=== PATIENT | male | born 1965 | race Caucasian/White ===

== ENCOUNTER 2018-10-29 18:42 | Inpatient (IN) | payer OTHER ==
[2018-10-29] MEDS ORDERED: NALOXONE 0.4 MG/ML 1 ML VIAL IV PRN (18:58)
[2018-10-29] MEDS ORDERED: LIDOCAINE 1% INJ 10MG/ML (20 ML MDV) ONE (18:58)
[2018-10-29] MEDS ORDERED: fentaNYL (PF) 50 MCG/ML 2 ML AMP ONE (18:59)
--- NOTE | 2018-10-29 19:02 | ED ---
General Adult HPI - General Stated complaint: Chest pain Time Seen by Provider: 10/29/18 18:57 Source: patient, EMS, RN notes reviewed, old records reviewed - History of Present Illness Initial comments: 53-year-old male presenting for evaluation of chest pain. Patient was sent from [facility] with anterior ST segment elevation [place]. Patient developed dyspnea and chest pain. Today. He is diaphoretic had nausea. He has a history of CAD, history of diabetes. Previous stenting. Patient was transferred after being given aspirin, statin, and heparin. He states his pain is significantly improved at the time my evaluation. - Related Data Home Medications Medication Instructions Recorded Confirmed Clopidogrel Bisulfate [Clopidogrel] 75 mg PO DAILY 10/11/13 01/21/16 Aspirin 325 mg PO DAILY 11/23/13 01/21/16 Divalproex Sodium 500 mg PO BID 01/21/16 01/21/16 Gabapentin [Neurontin] 100 mg PO TID 01/21/16 01/21/16 Glimepiride [Amaryl] 1 mg PO BID 01/21/16 01/21/16 PARoxetine HCL [Paxil] 40 mg PO DAILY 01/21/16 01/21/16 Sertraline [Zoloft] 50 mg PO DAILY 01/21/16 01/21/16 metFORMIN HCL 1,000 mg PO BID 01/21/16 01/21/16 Previous Rx's Medication Instructions Recorded Lisinopril [Zestril] 2.5 mg PO DAILY #1 tab 10/10/13 Metoprolol Tartrate [Lopressor] 25 mg PO BID #1 tab 10/10/13 lamoTRIgine [LaMICtal] 25 mg PO BID #60 tab 10/13/13 traMADol HCL [Ultram] 50 mg PO Q6HR PRN #20 tab 08/12/14 Ondansetron Odt [Zofran ODT] 4 mg PO Q8HR PRN #10 tab 07/20/15 Dicyclomine [Bentyl] 20 mg PO Q6H PRN #20 tablet 07/21/15 Ranitidine HCl [Zantac] 150 mg PO BID #20 tab 07/21/15 Budesonide-Formot 160-4.5 Mcg 2 puff INHALATION RT-BID #1 inh 01/24/16 [Symbicort 160-4.5 Mcg Inhaler] Ipratropium/Albuterol Sulfate 1 puff INHALATION TID #1 inhaler 01/24/16 [Combivent Respimat Inhaler] Levofloxacin [Levaquin] 750 mg PO DAILY@1800 #5 tab 01/24/16 Nicotine 14Mg/24Hr Patch [Habitrol] 1 patch TRANSDERM DAILY #30 patch 01/24/16 Allergies Allergy/AdvReac Type Severity Reaction Status Date / Time No Known Allergies Allergy Verified 01/21/16 18:49 Review of Systems ROS Statement: Those systems with pertinent positive or pertinent negative responses have been documented in the HPI. ROS Other: All systems not noted in ROS Statement are negative. Past Medical History Past Medical History: Chest Pain / Angina, Diabetes Mellitus, Hypertension, Myocardial Infarction ([place]) Additional Past Medical History / Comment(s): Coronary artery disease with previous insertion of coronary stents, obesity, hypertension, hyperlipidemia, diabetes mellitus, DEPRESSION, ascending aortic aneurysm measuring 4.3 cm in size Last Myocardial Infarction Date:: 08/05/2013 History of Any Multi-Drug Resistant Organisms: None Reported Past Surgical History: Cholecystectomy, Heart Catheterization With Stent, Tonsillectomy Past Anesthesia/Blood Transfusion Reactions: No Reported Reaction Date of Last Stent Placement:: 08/05/2013 stent x 2 to RCA Past Psychological History: Depression Smoking Status: Current every day smoker Past Alcohol Use History: None Reported Additional Past Alcohol Use History / Comment(s): Pt. stated that he stopped using alcohol after being arrested for a DWI. Past Drug Use History: None Reported Additional Drug Use History / Comment(s): states he does not use any drugs drug screen was positive for methamphetamines - Past Family History Father Family Medical History: Diabetes Mellitus Additional Family Medical History / Comment(s): HAD HEART ATTACK Mother Family Medical History: Diabetes Mellitus Additional Family Medical History / Comment(s): HAD HEART ATTACK General Exam General appearance: alert, in no apparent distress Head exam: Present: atraumatic, normocephalic Eye exam: Present: normal appearance, PERRL ENT exam: Present: normal exam Neck exam: Present: normal inspection. Absent: tenderness, meningismus Respiratory exam: Present: normal lung sounds bilaterally. Absent: respiratory distress, wheezes Cardiovascular Exam: Present: regular rate, normal rhythm GI/Abdominal exam: Present: soft. Absent: distended, tenderness, guarding Extremities exam: Present: normal capillary refill. Absent: pedal edema Neurological exam: Present: alert, oriented X3 Psychiatric exam: Present: normal affect, normal mood Skin exam: Present: warm, diaphoretic EKG Findings - EKG Comments: EKG Findings:: EKG: Sinus tachycardia, rate of 107, left atrial enlargement, low voltage, rate of 70, LA interval 124, QRS duration 94, QTC 531, ST segment elevation in V2 and V3 with T-wave inversion. Medical Decision Making - Medical Decision Making 53-year-old male history of CAD, diabetes presenting with acute IL. Patient transferred from the [facility], given aspirin, statin, heparin prior to arrival. He is productive emergency department awaiting Supervisor Sample Preparation. He is evaluated by the liquid fertilizer servicer in the emergency department, Dr. Acuna, taken urgently to the Supervisor Sample Preparation. Disposition Clinical Impression: STEMI (ST elevation myocardial infarction) Disposition[facility] Condition: Serious Is patient prescribed a controlled substance at d/c from ED?: No Referrals: Roosevelt Moulton MD [Primary Care Provider] - 1-2 days Decision to Admit Reason: Admit from EC Decision Date: 10/29/18 Decision Time: 19:01
[2018-10-29] MEDS ORDERED: IV FLUID CONTINUATION 1,000 ML IV ONE (19:10)
[2018-10-29] MEDS ORDERED: fentaNYL (PF) 50 MCG/ML 2 ML AMP IVP ONE (19:12)
[2018-10-29] MEDS ORDERED: LIDOCAINE 1% INJ 10MG/ML (20 ML MDV) SQ ONE (19:12)
[2018-10-29] MEDS ORDERED: MIDAZOLAM (PF) 2 MG/2 ML VIAL IVP ONE (19:14)
[2018-10-29] MEDS ORDERED: BIVALIRUDIN BOLUS 250 MG/50 ML IV ONE (19:22)
[2018-10-29] MEDS ORDERED: BIVALIRUDIN 250 MG in SODIUM CHLORIDE 0.9% 50 ML IV ONE (19:23)
[2018-10-29] MEDS ORDERED: NITROGLYCERIN 1000MCG/10ML SYRINGE INTRACORON ONE (19:32)
[2018-10-29] MEDS ORDERED: IOPAMIDOL-370 100ML BTL INJ ONE ×2 (19:37→19:51)
[2018-10-29] MEDS ORDERED: PRASUGREL 10 MG TAB ONE (19:43)
[2018-10-29] MEDS ORDERED: METOPROLOL TARTRATE 5 MG/5 ML VIAL IVP ONE ×2 (19:44→19:50)
[2018-10-29] MEDS ORDERED: PRASUGREL 10 MG TAB PO ONE (19:50)
[2018-10-29] MEDS ORDERED: RX INFO: IV CONTRAST WAS GIVEN 1 EACH MISC MISCELLANE PRN (19:51)
[2018-10-29] MEDS ORDERED: ATROPINE SULFATE 0.1 MG/ML 10ML SYRINGE IV PRN (19:51)
[2018-10-29] MEDS ORDERED: MAG HYDROX/AL HYDROX/SIMETH 30 ML CUP PO PRN (19:51)
[2018-10-29] MEDS ORDERED: NITROGLYCERIN SL TABS 0.4 MG TAB SUBLINGUAL PRN (19:51)
[2018-10-29] MEDS ORDERED: SODIUM CHLORIDE 0.9% 1,000 ML IV SCH (20:00)
[2018-10-29 21:00] LABS: Glucose,Whole Blood 212 mg/dL (75-99)
--- NOTE | 2018-10-29 21:08 | PTCA ---
PERCUTANEOUSTRANS CORORONARY ANGIOGRAPHY DATE OF SERVICE: October 29, 2018 PERFORMING PHYSICIAN: Bala Smith MD, dry chain operator. PROCEDURE PERFORMED: 1. Aspiration thrombectomy from the left anterior descending artery. 2. Successful stenting of the proximal left anterior descending artery using 2.5 x 33 mm Xience drug-eluting stent which was post dilated using 3 mm noncompliant balloon with an excellent angiographic results and reduction of stenosis from 100% to 0%. 3. Left heart catheterization. 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 He underwent an emergent heart catheterization by Dr. Acuna and was found to have intermediate disease involving the mid right coronary artery and occluded LAD in the proximal portion. An emergent PCI of the LAD was advised. APPROACH: Right common femoral artery. COMPLICATION: None. LEVEL OF SEDATION: Moderate with sedation length of 26 minutes. Lgax-sm-iarl to balloon was 2 hours. PROCEDURE DESCRIPTION: Description please refer to diagnostic heart catheterization was performed by Dr. Acuna earlier today. Anticoagulation was initiated using Angiomax. Subsequently I did the left main using JL5 guide. I did cross the acute total occlusion in the proximal LAD using a run-through wire. After that, I did aspiration thrombectomy from the LAD before I did balloon angioplasty using 2.5 x 12 mm balloon and subsequently deploying 2.5 x 28 x 33 mm Xience ALINA where the stent was positioned under fluoroscopy guidance and deployed under 18 atmospheres for 20 seconds. I post-dilated the stent using a 3.0 mm NC balloon. The final angiogram showed excellent results and the procedure was completed without any complication. Left heart catheterization was performed using a 6-Bruneian pigtail catheter. The procedure was completed without any complication. POSTPROCEDURE MANAGEMENT: 1. Dual anti-platelet therapy. 2. Risk factors modifications. 3. Follow up with the patient. MMODL / IJN: [id number] /
--- NOTE | 2018-10-29 21:08 | CONS ---
CONSULTATION This is a 53-year-old gentleman with history of coronary artery disease, status post prior angioplasty, who presented to [facility] with acute anterior wall myocardial infarction and is transferred over to [facility] for emergent cath and angioplasty. The patient presented there with episodes of precordial chest pressure that is being going on for the last several days, particularly worse today. He has history of diabetes. He has been in snf up until recently and has not been seeing a high school guidance counselor regularly. PAST MEDICAL HISTORY: Significant for coronary artery disease and diabetes. MEDICATIONS: As charted. ALLERGIES: Allergies are as charted. FAMILY HISTORY: Negative for premature coronary artery disease. SOCIAL HISTORY: Significant for smoking. There is no history of EtOH abuse or drug abuse. REVIEW OF SYSTEMS: HEENT is unremarkable. CARDIAC as described above. RESPIRATORY as described above. GI negative. GENITOURINARY negative. ALLERGY/IMMUNOLOGY: Negative. SKIN negative. MUSCULOSKELETAL significant for arthritis. PSYCHOSOCIAL negative. ENDOCRINE: Negative. DERM: Negative. CONSTITUTIONAL: Negative. ONCOLOGICAL: Negative. Rest of the system review is not relevant. EXAM: The patient is comfortable at rest. Vital signs are stable. There is no jugular venous distention. Carotid upstroke is normal. There is no bruit. Chest exam reveals good air entry bilaterally. Heart exam reveals first and second heart sounds. No gallop. No murmur. No rub. Abdomen is soft, nontender. Exam of extremities did not reveal any edema. Peripheral pulses are felt. CLOTHING TRADES WORKERS exam did not reveal focal neurological deficits. EKG shows acute anterior wall myocardial infarction with ST-segment elevation in V2, V3. ASSESSMENT: Acute anterior wall myocardial infarction. PLAN: Patient will undergo emergent cardiac catheterization. MMODL / IJN: [id number] /
--- NOTE | 2018-10-29 21:26 | CC ---
CARDIAC CATHETERIZATION REPORT INDICATION: Acute anterior wall myocardial infarction. PROCEDURE NOTE: After obtaining informed consent, left heart catheterization and coronary angiogram were performed via the right femoral artery using standard Tony catheters. Patient tolerated the procedure well without any obvious immediate complications. The left coronary system was engaged using a size 5 Tony catheters. FINDINGS: HEMODYNAMICS: Aortic pressure is 120/60 mm. LEFT VENTRICULOGRAM: Left ventriculogram is not performed. ANGIOGRAPHIC DATA: LEFT MAIN CORONARY ARTERY: Left main coronary artery appears calcified but is free of significant stenosis. Divides into left anterior descending coronary artery and circumflex coronary artery. CIRCUMFLEX CORONARY ARTERY: Circumflex coronary artery is a nondominant vessel that has non critical lesions. LEFT ANTERIOR DESCENDING CORONARY ARTERY: The LAD appears totally occluded in its proximal part. RIGHT CORONARY ARTERY: Right coronary artery was previously stented in the proximal and midportion. The stent appears patent. In the mid RCA, there is a 30-40 percent stenosis. CONCLUSIONS: 1. Complete occlusion of the left anterior descending coronary artery. 2. Patent stent within the right coronary artery. PLAN: Patient will undergo angioplasty of the LAD. MMODL / IJN: [id number] /
--- NOTE | 2018-10-29 21:29 | LTR ---
DATE OF SERVICE: October 29, 2018. Dear Dr. Moulton: Mr. Jose Enrique Randhawa presented to the emergency room with chest discomfort and was diagnosed with acute anterior ST-elevation myocardial infarction. He underwent an emergent heart catheterization by Dr. Acuna and I did perform successful stenting of the LAD disease. Thank you for allowing us to participate in his care and please do not hesitate to call if you have any question or concerns. Sincerely, MMODL / IJN: [id number] /
[2018-10-29] MEDS: ATORVASTATIN 80 MG TAB PO SCH (21:36)
[2018-10-29] MEDS: INSULIN ASPART (NovoLOG) 100 UNIT/ML VIAL SQ SCH (21:36)
[2018-10-29 21:38] LABS: Glucose,Whole Blood 230 mg/dL (75-99)
[2018-10-29] MEDS ORDERED: guaiFENesin SYRUP 100MG/5ML 200 MG/10 ML CUP PO PRN (23:15)
[2018-10-29] MEDS: METOPROLOL TARTRATE 25 MG TAB PO SCH (23:34)
[2018-10-30] MEDS ORDERED: INSULIN ASPART (NovoLOG) 100 UNIT/ML VIAL SQ ONE (01:03)
[2018-10-30 01:05] LABS: Glucose,Whole Blood 197 mg/dL (75-99)
[2018-10-30] MEDS ORDERED: FUROSEMIDE 10 MG/ML 4 ML VIAL IV STA (06:36)
[2018-10-30 06:53] LABS: Basophils % (A) 0 %; Eosinophils # (A) 0.1 k/uL (0-0.7); Eosinophils % (A) 1 %; HCT 42.9 % (39.0-53.0); HGB 13.4 gm/dL (13.0-17.5); Lymphocytes # (A) 2.7 k/uL (1.0-4.8); Lymphocytes % (A) 25 %; MCH 26.9 pg (25.0-35.0); MCHC 31.2 g/dL (31.0-37.0); MCV 86.2 fL (80.0-100.0); Mean Platelet Volume 7.3; Monocytes # (A) 0.5 k/uL (0-1.0); Monocytes % (A) 4 %; Neutrophils # (A) 7.3 k/uL (1.3-7.7); Neutrophils % (A) 68 %; Platelet Count 384 k/uL (150-450); RBC 4.97 m/uL (4.30-5.90); RDW 14.1 % (11.5-15.5); WBC 10.7 k/uL (3.8-10.6)
--- NOTE | 2018-10-30 07:07 | XR ---
EXAMINATION TYPE: XR chest 1V portable DATE OF EXAM: 10/30/2018 HISTORY: Shortness of breath. COMPARISON: January 23, 2016 TECHNIQUE: Single view of the chest is submitted. FINDINGS: Demonstrated are scattered senescent parenchymal change. There is pulmonary venous congestion with scattered curly B-lines suggestive of congestive failure. L eft basilar patchy infiltrate may reflect additional infiltrate. Hilar and mediastinal structures are within normal limits. Degenerative changes are seen of the dorsal spine. IMPRESSION: 1. Findings may reflect interstitial edema. Infiltrates of other etiology not excluded. Correlate cl inically and progress studies are recommended.
[2018-10-30 07:09] LABS: Anion Gap 10 mmol/L; Blood Urea Nitrogen 14 mg/dL (9-20); Carbon Dioxide 22 mmol/L (22-30); Chloride 108 mmol/L (98-107); Glucose 200 mg/dL (74-99); Magnesium 1.8 mg/dL (1.6-2.3); Potassium 4.4 mmol/L (3.5-5.1); Sodium 140 mmol/L (137-145)
[2018-10-30 07:19] LABS: Glucose,Whole Blood 200 mg/dL (75-99)
[2018-10-30] MEDS: INSULIN ASPART (NovoLOG) 100 UNIT/ML VIAL SQ SCH ×4 (07:24→21:38)
[2018-10-30] MEDS: IPRATROPIUM-ALBUTEROL 3 ML NEB INHALATION PRN ×2 (08:10→19:07)
[2018-10-30] MEDS: MAGNESIUM SULFATE-D5W PMX 1 GM in DEXTROSE/WATER 1 100ML.BAG IVPB SCH ×2 (08:52→10:19)
[2018-10-30] MEDS: ASPIRIN 325 MG TAB PO SCH (08:53)
[2018-10-30] MEDS: METOPROLOL TARTRATE 25 MG TAB PO SCH ×2 (08:53→19:49)
--- NOTE | 2018-10-30 09:05 | P.HPIM ---
History of Present Illness this is a pleasant 53 years old malewith past medical history of asthma, coronary artery disease status post cardiac cath with the stents, diabetes mellitus, hyperlipidemia, hypertension, ex-cigarette smoker and substance abuse, chronic diarrhea. patient was recently released from detention on 10/25/2018. he presents because of chest pain and dyspneaone-day duration after he helped his son regarding up objects for his house. Patient came to the emergency room and found to have anterior segment ST elevation [place]. Patient underwent cardiac angiogram by stemming machine operator, he found to havecomplete occlusion of the left anterior descending coronary artery with patent stent in the right coronary arteries. Patient is status post stent placement in his LAD. After the procedure patient was sent to the ICU, is lying comfortably with no chest pain , however patient is complaining of from dyspnea at rest and with minimal exertion. his vitals are stable. He has mild leukocytosis at 10.7 K, BMP is unremarkable, sugar is around 200. Magnesium 1.8.chest x-ray: Interstitial edema, he got already 1 dose of Lasix 40 mg this morning. Review of Systems CONSTITUTIONAL: No fever, no malaise, no fatigue. HEENT: No recent visual problems or hearing problems. Denied any sore throat. CARDIOVASCULAR: No orthopnea, PND, no palpitations, no syncope. PULMONARY: No shortness of breath, no cough, no hemoptysis. GASTROINTESTINAL: No diarrhea, no nausea, no vomiting, no abdominal pain. Normoactive bowel sounds. NEUROLOGICAL: No headaches, no weakness, no numbness. HEMATOLOGICAL: Denies any bleeding or petechiae. GENITOURINARY: Denies any burning micturition, frequency, or urgency. MUSCULOSKELETAL/RHEUMATOLOGICAL: Denies any joint pain, swelling, or any muscle pain. ENDOCRINE: Denies any polyuria or polydipsia. Past Medical History Past Medical History: Asthma, Coronary Artery Disease (CAD), Chest Pain / Angina, Diabetes Mellitus, Hyperlipidemia, Hypertension, Myocardial Infarction ([place]) Additional Past Medical History / Comment(s): Coronary artery disease with previous insertion of coronary stents, obesity, hypertension, hyperlipidemia, diabetes mellitus, DEPRESSION, ascending aortic aneurysm measuring 4.3 cm in size Last Myocardial Infarction Date:: 08/05/2013 History of Any Multi-Drug Resistant Organisms: None Reported Past Surgical History: Cholecystectomy, Heart Catheterization With Stent, Tonsillectomy Past Anesthesia/Blood Transfusion Reactions: No Reported Reaction Date of Last Stent Placement:: 08/05/2013 stent x 2 to RCA Past Psychological History: Depression Smoking Status: Current every day smoker Past Alcohol Use History: None Reported Additional Past Alcohol Use History / Comment(s): Pt. stated that he stopped using alcohol after being arrested for a DWI. Past Drug Use History: None Reported Additional Drug Use History / Comment(s): states he does not use any drugs drug screen was positive for methamphetamines - Past Family History Father Family Medical History: Diabetes Mellitus Additional Family Medical History / Comment(s): HAD HEART ATTACK Mother Family Medical History: Diabetes Mellitus Additional Family Medical History / Comment(s): HAD HEART ATTACK Medications and Allergies Home Medications Medication Instructions Recorded Confirmed Type Lisinopril [Zestril] 2.5 mg PO DAILY #1 tab 10/10/13 01/21/16 Rx Metoprolol Tartrate [Lopressor] 25 mg PO BID #1 tab 10/10/13 01/21/16 Rx Clopidogrel Bisulfate [Clopidogrel] 75 mg PO DAILY 10/11/13 01/21/16 History lamoTRIgine [LaMICtal] 25 mg PO BID #60 tab 10/13/13 01/21/16 Rx Aspirin 325 mg PO DAILY 11/23/13 01/21/16 History traMADol HCL [Ultram] 50 mg PO Q6HR PRN #20 tab 08/12/14 01/21/16 Rx Ondansetron Odt [Zofran ODT] 4 mg PO Q8HR PRN #10 tab 07/20/15 01/21/16 Rx Dicyclomine [Bentyl] 20 mg PO Q6H PRN #20 tablet 07/21/15 01/21/16 Rx Ranitidine HCl [Zantac] 150 mg PO BID #20 tab 07/21/15 01/21/16 Rx Divalproex Sodium 500 mg PO BID 01/21/16 01/21/16 History Gabapentin [Neurontin] 100 mg PO TID 01/21/16 01/21/16 History Glimepiride [Amaryl] 1 mg PO BID 01/21/16 01/21/16 History PARoxetine HCL [Paxil] 40 mg PO DAILY 01/21/16 01/21/16 History Sertraline [Zoloft] 50 mg PO DAILY 01/21/16 01/21/16 History metFORMIN HCL 1,000 mg PO BID 01/21/16 01/21/16 History Budesonide-Formot 160-4.5 Mcg 2 puff INHALATION RT-BID #1 inh 01/24/16 Rx [Symbicort 160-4.5 Mcg Inhaler] Ipratropium/Albuterol Sulfate 1 puff INHALATION TID #1 inhaler 01/24/16 Rx [Combivent Respimat Inhaler] Levofloxacin [Levaquin] 750 mg PO DAILY@1800 #5 tab 01/24/16 Rx Nicotine 14Mg/24Hr Patch [Habitrol] 1 patch TRANSDERM DAILY #30 patch 01/24/16 Rx Allergies Allergy/AdvReac Type Severity Reaction Status Date / Time No Known Allergies Allergy Verified 01/21/16 18:49 Physical Exam Vitals: Vital Signs Temp Pulse Resp BP Pulse Ox 10/30/18 08:25 94 10/30/18 08:12 98 10/30/18 07:00 93 27 H 107/66 98 10/30/18 06:00 98 24 102/74 98 10/30/18 05:00 89 25 H 104/76 96 10/30/18 04:00 97.8 F 96 26 H 113/77 95 10/30/18 03:00 104 H 23 104/77 95 10/30/18 02:00 86 24 106/74 93 L 10/30/18 01:00 94 22 101/70 96 10/30/18 00:00 98.1 F 97 22 106/75 95 10/29/18 23:00 99 20 116/81 95 10/29/18 22:45 101 H 21 115/80 95 10/29/18 22:30 96 22 110/80 96 10/29/18 22:15 98 22 109/64 97 10/29/18 22:00 98 25 H 103/73 96 10/29/18 21:45 102 H 22 97/72 94 L 10/29/18 21:30 97 24 101/71 94 L 10/29/18 21:15 97 14 99/76 95 10/29/18 21:00 95 16 90/69 95 10/29/18 20:45 98 22 90/72 95 10/29/18 20:30 98.0 F 94 27 H 96/76 93 L 10/29/18 19:28 98.0 F 19 10/29/18 18:58 110 H 20 118/86 97 Intake and Output 10/29/18 10/30/18 10/30/18 22:59 06:59 14:59 Intake Total 718 1765 Output Total 0 500 250 Balance 718 1265 -250 Intake: IV 718 525 Sodium Chloride 0.9% 1, 225 525 000 ml @ 75 mls/hr IV . [id number] [facility] Rx#:[id number] Oral 1240 Output: Urine 0 500 250 Other: Voiding Method Urinal Urinal # Voids 1 Weight 129.274 kg 129.3 kg GENERAL: The patient is alert and oriented x3, not in any acute distress. Well developed, well nourished. HEENT: Pupils are round and equally reacting to light. EOMI. No scleral icterus. No conjunctival pallor. Normocephalic, atraumatic. No pharyngeal erythema. No thyromegaly. CARDIOVASCULAR: S1 and S2 present. No murmurs, rubs, or gallops. PULMONARY: Chest is clear to auscultation, no wheezing or crackles. ABDOMEN: Soft, nontender, nondistended, normoactive bowel sounds. No palpable organomegaly. MUSCULOSKELETAL: No joint swelling or deformity. EXTREMITIES: No cyanosis, clubbing, or pedal edema. NEUROLOGICAL: Gross neurological examination did not reveal any focal deficits. SKIN: No rashes. Results CBC & Chem 7: 10/30/18 06:00 10/30/18 06:00 Labs: Abnormal Lab Results - Last 24 Hours (Table) 10/29/18 10/29/18 10/30/18 Range/Units 20:49 21:26 00:54 WBC (3.8-10.6) k/uL Chloride (98-107) mmol/L Glucose (74-99) mg/dL POC Glucose (mg/dL) 212 H 230 H 197 H (75-99) mg/dL 10/30/18 10/30/18 10/30/18 Range/Units 06:00 06:00 07:08 WBC 10.7 H (3.8-10.6) k/uL Chloride 108 H (98-107) mmol/L Glucose 200 H (74-99) mg/dL POC Glucose (mg/dL) 200 H (75-99) mg/dL Thrombosis Risk Factor Assmnt - Choose All That Apply Any of the Below Risk Factors Present?: Yes Each Factor Represents 1 point: Acute [place], Age 41-60 years, Medical pt on bed rest, Obesity (BMI >25) Other Risk Factors: No Other congenital or acquired thrombophilia - If yes, enter type in comment: No Thrombosis Risk Factor Assessment Total Risk Factor Score: 4 Thrombosis Risk Factor Assessment Level: Moderate Risk Assessment and Plan Assessment: anterior ST elevation myocardial infarction, status post stent placement in his LAD History of coronary artery disease with status post stent placement in his right coronary artery pulmonary congestion, rule out heart failure. type2 diabetes mellitus Essential hypertension history of Nicotine dependence Hyperlipidemia chronic diarrhea Plan: this is a pleasant 53 years old male who presents with anterior STEMI, status post angiogram of the coronaries and stent placement in his LAD. Continue with dual antiplatelet therapy, metoprolol, and Lipitor. Cartilage team are following the patient closely. Labs and medication were reviewed.. Continue same treatment. Continue with symptomatic treatment. Resume home medication. Monitor lytes and vitals. DVT and GI prophylaxis. Further recommendations of the clinical course of the patient GI Prophylaxis: Pepcid
[2018-10-30] MEDS: PRASUGREL 10 MG TAB PO SCH (10:20)
[2018-10-30 10:33] VITALS: BMI 37.5
[2018-10-30] MEDS: CITALOPRAM HYDROBROMIDE 20 MG TAB PO SCH (11:36)
[2018-10-30 12:12] LABS: Glucose,Whole Blood 229 mg/dL (75-99)
[2018-10-30] MEDS: glipiZIDE 5 MG TAB PO SCH ×2 (12:19→17:56)
--- NOTE | 2018-10-30 12:44 | PN ---
PROGRESS NOTE Mr. Randhawa is a 53-year-old gentleman who was transferred from [facility] because of the EKG suggestive of acute anterior wall myocardial infarction and patient underwent a stent to the LAD. Patient is doing fairly well. Denies any chest pain. He had some difficulty in breathing. Patient received IV Lasix and diuresed about a L of fluid. Chest x-ray does show evidence of congestive cardiac failure. Electrolytes are normal. Echo result is being awaited. The patient's creatinine is 0.77. Blood pressure is 121/88 mmHg. Heart S1 and S2 normal. Lungs reveal few basal rales. Abdomen is negative. I will continue the current medications and we will repeat the chest x-ray tomorrow. MMODL / IJN: [id number] /
[2018-10-30] MEDS ORDERED: FUROSEMIDE 10 MG/ML 2 ML VIAL IV ONE (13:23)
[2018-10-30] MEDS: ALPRAZolam 0.5 MG TAB PO PRN ×2 (13:54→21:40)
[2018-10-30 17:17] LABS: Glucose,Whole Blood 146 mg/dL (75-99)
[2018-10-30] MEDS ORDERED: metFORMIN 500 MG TAB PO SCH (17:30)
--- NOTE | 2018-10-30 17:38 | ECHOF ---
Referral Reason:stemi MEASUREMENTS -------- HEIGHT: 180.3 cm WEIGHT: 129.3 kg BP: 107/66 IVSd: 1.1 cm (0.6 - 1.1) LVIDd: 6.3 cm (3.9 - 5.3) LVPWd: 1.1 cm (0.6 - 1.1) IVSs: 1.2 cm LVIDs: 5.9 cm LVPWs: 1.4 cm LAESV Index (A-L): 27.06 ml/m Ao Diam: 3.5 cm (2.0 - 3.7) AV Cusp: 1.7 cm (1.5 - 2.6) LA Diam: 3.0 cm (2.7 - 3.8) MV EXCURSION: 12.907 mm (> 18.000) MV EF SLOPE: 35 mm/s (70 - 150) EPSS: 2.1 cm MV E Evans: 1.03 m/s MV DecT: 153 ms MV A Evans: 0.34 m/s MV E/A Ratio: 3.00 AV maxP.79 mmHg AV meanP.28 mmHg AR PHT: 339 ms RAP: 5.00 mmHg RVSP: 34.31 mmHg FINDINGS -------- Sinus rhythm. This was a technically adequate study. The left ventricle is mildly dilated. Left ventricular wall thickness is normal. There is severe global hypokinesis of LV . Overall left ventricular systolic function is severely impaired with, an EF between 20 - 25 %. Basal Segment Yadira only. The right ventricle is normal in size. Normal LA size by volume 22+/-6 ml/m2. The right atrial size is normal. Lumason used Interatrial and interventricular septum intact. Aortic valve is trileaflet and is moderately thickened. There is mild aortic regurgitation. Aorti c valve appears stenotic. Unable to get gradient based on very low EF. The mitral valve leaflets are mildly thickened. [id number] mitral regurgitation is present. Mild tricuspid regurgitation present. There is no evidence of pulmonary hypertension. The right v entricular systolic pressure, as measured by Doppler, is 34.31mmHg. The aortic root size is normal. IVC Not well visulized. There is no pericardial effusion. CONCLUSIONS -------- 1. Sinus rhythm. 2. This was a technically adequate study. 3. The left ventricle is mildly dilated. 4. Left ventricular wall thickness is normal. 5. There is severe global hypokinesis of LV . 6. Overall left ventricular systolic function is severely impaired with, an EF between 20 - 25 %. 7. Basal Segment Yadira only. 8. The right ventricle is normal in size. 9. Normal LA size by volume 22+/-6 ml/m2. 10. The right atrial size is normal. 11. Lumason used 12. Interatrial and interventricular septum intact. 13. Aortic valve is trileaflet and is moderately thickened. 14. There is mild aortic regurgitation. 15. The mitral valve leaflets are mildly thickened. 16. Pnkz-kl-gjholrho mitral regurgitation is present. 17. Mild tricuspid regurgitation present. 18. There is no evidence of pulmonary hypertension. 19. The right ventricular systolic pressure, as measured by Doppler, is 34.31mmHg. 20. The aortic root size is normal. 21. IVC Not well visulized. 22. There is no pericardial effusion. JAVA TECH LEAD: Ria Elder RDCS
[2018-10-30] MEDS: ATORVASTATIN 80 MG TAB PO SCH (19:49)
[2018-10-30 21:11] LABS: Glucose,Whole Blood 158 mg/dL (75-99)
[2018-10-31 05:33] LABS: Anion Gap 8 mmol/L; Blood Urea Nitrogen 13 mg/dL (9-20); Calcium 8.6 mg/dL (8.4-10.2); Carbon Dioxide 24 mmol/L (22-30); Chloride 105 mmol/L (98-107); Glucose 159 mg/dL (74-99); Sodium 137 mmol/L (137-145)
[2018-10-31 05:49] LABS: Magnesium 1.9 mg/dL (1.6-2.3)
[2018-10-31] MEDS: MAGNESIUM SULFATE-D5W PMX 1 GM in DEXTROSE/WATER 1 100ML.BAG IVPB SCH ×2 (05:57→07:00)
[2018-10-31 07:02] LABS: Glucose,Whole Blood 179 mg/dL (75-99)
[2018-10-31] MEDS: glipiZIDE 5 MG TAB PO SCH ×2 (07:08→17:24)
[2018-10-31] MEDS: INSULIN ASPART (NovoLOG) 100 UNIT/ML VIAL SQ SCH ×4 (07:08→20:46)
[2018-10-31] MEDS: ASPIRIN 325 MG TAB PO SCH (08:49)
[2018-10-31] MEDS: METOPROLOL TARTRATE 25 MG TAB PO SCH ×2 (08:49→20:44)
[2018-10-31] MEDS: TAMSULOSIN 0.4 MG CAP.ER.24H PO SCH (08:49)
[2018-10-31] MEDS: PRASUGREL 10 MG TAB PO SCH (08:49)
[2018-10-31] MEDS: CITALOPRAM HYDROBROMIDE 20 MG TAB PO SCH (08:59)
--- NOTE | 2018-10-31 10:11 | XR ---
EXAMINATION TYPE: XR chest 1V portable DATE OF EXAM: 10/31/2018 COMPARISON: 10/30/2018 INDICATION: Assess lungs TECHNIQUE: Single frontal view of the chest is obtained. FINDINGS: The heart size is mildly prominent. The pulmonary vasculature is normal. The lungs are clear. IMPRESSION: 1. Cardiomegaly
[2018-10-31] MEDS: FUROSEMIDE 20 MG TAB PO SCH (12:18)
[2018-10-31] MEDS: LISINOPRIL 2.5 MG TAB PO SCH ×2 (12:18→20:44)
[2018-10-31 12:23] LABS: Glucose,Whole Blood 224 mg/dL (75-99)
--- NOTE | 2018-10-31 12:36 | PN ---
PROGRESS NOTE This patient is status post stent to the LAD and anterior wall myocardial infarction. He is feeling much better as compared to yesterday. His breathing is improved. Patient's heart rate is 100 per minute, blood pressure is 103/57 mmHg. First and second heart sounds are heard. Lungs are clinically clear to auscultation and percussion. Chest x-ray shows improvement in the congestive changes. Patient's echocardiogram reveals a severely impaired left ventricular systolic function. In view of that, I discussed with the patient the benefits and risks of the life vest and we will consider life vest to prevent any sudden cardiac cath . I will a also add lisinopril 2.5 mg b.i.d. and continue Lopressor 25 mg b.i.d. MMODL / COURTNEYN: [id number] /
[2018-10-31 17:05] LABS: Glucose,Whole Blood 175 mg/dL (75-99)
[2018-10-31] MEDS ORDERED: FUROSEMIDE 10 MG/ML 2 ML VIAL IV ONE (17:15)
[2018-10-31] MEDS: IPRATROPIUM-ALBUTEROL 3 ML NEB INHALATION PRN (19:12)
[2018-10-31] MEDS: ATORVASTATIN 80 MG TAB PO SCH (20:44)
[2018-10-31 20:48] LABS: Glucose,Whole Blood 169 mg/dL (75-99)
[2018-10-31] MEDS: ALPRAZolam 0.5 MG TAB PO PRN (20:56)
[2018-10-31] MEDS: ZOLPIDEM 5 MG TAB PO PRN (23:08)
[2018-11-01] MEDS ORDERED: FUROSEMIDE 10 MG/ML 4 ML VIAL IV STA (01:19)
[2018-11-01 05:35] LABS: Basophils # (A) 0.1 k/uL (0-0.2); Basophils % (A) 1 %; Eosinophils # (A) 0.1 k/uL (0-0.7); Eosinophils % (A) 1 %; HCT 39.6 % (39.0-53.0); HGB 12.9 gm/dL (13.0-17.5); Lymphocytes # (A) 2.6 k/uL (1.0-4.8); Lymphocytes % (A) 30 %; MCH 27.6 pg (25.0-35.0); MCHC 32.6 g/dL (31.0-37.0); MCV 84.7 fL (80.0-100.0); Mean Platelet Volume 7.4; Monocytes # (A) 0.5 k/uL (0-1.0); Monocytes % (A) 6 %; Neutrophils # (A) 5.2 k/uL (1.3-7.7); Neutrophils % (A) 61 %; Platelet Count 304 k/uL (150-450); RBC 4.67 m/uL (4.30-5.90); WBC 8.6 k/uL (3.8-10.6)
[2018-11-01 05:43] LABS: Anion Gap 8 mmol/L; Blood Urea Nitrogen 14 mg/dL (9-20); Calcium 8.5 mg/dL (8.4-10.2); Carbon Dioxide 26 mmol/L (22-30); Chloride 104 mmol/L (98-107); Glucose 170 mg/dL (74-99); Potassium 3.7 mmol/L (3.5-5.1); Sodium 138 mmol/L (137-145)
--- NOTE | 2018-11-01 06:21 | P.PN ---
Subjective this is a pleasant 53 years old malewith past medical history of asthma, coronary artery disease status post cardiac cath with the stents, diabetes mellitus, hyperlipidemia, hypertension, ex-cigarette smoker and substance abuse, chronic diarrhea. patient was recently released from long-term on 10/25/2018. he presents because of chest pain and dyspneaone-day duration after he helped his son regarding up objects for his house. Patient came to the emergency room and found to have anterior segment ST elevation [place]. Patient underwent cardiac angiogram by circus trainer, he found to havecomplete occlusion of the left anterior descending coronary artery with patent stent in the right coronary arteries. Patient is status post stent placement in his LAD. After the procedure patient was sent to the ICU, is lying comfortably with no chest pain , however patient is complaining of from dyspnea at rest and with minimal exertion. his vitals are stable. He has mild leukocytosis at 10.7 K, BMP is unremarkable, sugar is around 200. Magnesium 1.8.chest x-ray: Interstitial edema, he got already 1 dose of Lasix 40 mg this morning. 10/14/2018 Patient was lying in bed comfortable with no chest pain or dyspnea. Patient is in the ICU for his heart disease. He is on aspirin and Plavix. Patient of extra dose of Lasix. Chest x-ray showing normal pulmonary vasculature. Cardiology team are reviewing the case and the recommend LifeVest for the harris ent in view of his low ejection fraction of 20-25%. Patient also has [id number]-hl-[id number] mitral regurgitation. He is currently on lisinopril and metoprolol. He is hemodynamically stable. Glucose is controlled. Objective - Vital Signs Vital signs: Vital Signs Temp 98.6 F 10/31/18 16:00 Pulse 104 H 10/31/18 19:25 Resp 25 H 10/31/18 19:00 BP 101/71 10/31/18 19:00 Pulse Ox 94 L 10/31/18 19:13 Intake & Output 10/31/18 10/31/18 11/01/18 06:59 18:59 06:59 Intake Total 200 850 0 Output Total 675 1100 Balance -475 -250 0 Weight 132.8 kg Intake: IV 0 0 0.9ns 0 0 Intake, IV Titration 200 Amount Magnesium Sulfate-D5w Pmx 200 1 gm In Dextrose/Water 1 100ml.bag @ 100 mls/hr IVPB Q1H ELIZABETH Rx#: [id number] Oral 850 0 Output: Urine 675 1100 Other: Voiding Method Urinal Urinal # Voids 1 - Exam GENERAL: The patient is alert and oriented x3, not in any acute distress. Well developed, well nourished. HEENT: Pupils are round and equally reacting to light. EOMI. No scleral icterus. No conjunctival pallor. Normocephalic, atraumatic. No pharyngeal erythema. No thyromegaly. CARDIOVASCULAR: S1 and S2 present. No murmurs, rubs, or gallops. PULMONARY: Chest is clear to auscultation, no wheezing or crackles. ABDOMEN: Soft, nontender, nondistended, normoactive bowel sounds. No palpable organomegaly. MUSCULOSKELETAL: No joint swelling or deformity. EXTREMITIES: No cyanosis, clubbing, or pedal edema. NEUROLOGICAL: Gross neurological examination did not reveal any focal deficits. SKIN: No rashes. - Labs CBC & Chem 7: 11/01/18 04:27 11/01/18 04:27 Labs: Abnormal Lab Results - Last 24 Hours (Table) 10/30/18 10/31/18 10/31/18 Range/Units 21:00 04:34 06:51 Glucose 159 H (74-99) mg/dL POC Glucose (mg/dL) 158 H 179 H (75-99) mg/dL 10/31/18 10/31/18 Range/Units 12:12 16:54 Glucose (74-99) mg/dL POC Glucose (mg/dL) 224 H 175 H (75-99) mg/dL Assessment and Plan Assessment: anterior ST elevation myocardial infarction, status post stent placement in his LAD Acute and chronic systolic CHF, with ejection fraction 20-25% History of coronary artery disease with status post stent placement in his right coronary artery type2 diabetes mellitus Essential hypertension history of Nicotine dependence Hyperlipidemia chronic diarrhea Plan: this is a pleasant 53 years old male who presents with anterior STEMI, status post angiogram of the coronaries and stent placement in his LAD. Continue with dual antiplatelet therapy, metoprolol, and Lipitor. Cartilage team are fo llowing the patient closely. Labs and medication were reviewed.. Continue same treatment. Continue with symptomatic treatment. Resume home medication. Monitor lytes and vitals. DVT and GI prophylaxis. Further recommendations of the clinical course of the patient GI Prophylaxis: Pepcid
[2018-11-01] MEDS ORDERED: POTASSIUM CHLORIDE ER 20 MEQ TAB.ER PO SCH (07:00)
[2018-11-01 07:45] LABS: Glucose,Whole Blood 168 mg/dL (75-99)
[2018-11-01] MEDS: INSULIN ASPART (NovoLOG) 100 UNIT/ML VIAL SQ SCH ×4 (08:01→20:59)
[2018-11-01] MEDS: LISINOPRIL 2.5 MG TAB PO SCH ×2 (08:05→20:58)
[2018-11-01] MEDS: ASPIRIN 325 MG TAB PO SCH (08:05)
[2018-11-01] MEDS: PRASUGREL 10 MG TAB PO SCH (08:05)
[2018-11-01] MEDS: FUROSEMIDE 20 MG TAB PO SCH (08:06)
[2018-11-01] MEDS: glipiZIDE 5 MG TAB PO SCH ×2 (08:06→17:17)
[2018-11-01] MEDS: METOPROLOL TARTRATE 25 MG TAB PO SCH ×2 (08:06→20:59)
[2018-11-01] MEDS: CITALOPRAM HYDROBROMIDE 20 MG TAB PO SCH (08:06)
[2018-11-01] MEDS: TAMSULOSIN 0.4 MG CAP.ER.24H PO SCH (08:07)
[2018-11-01 12:16] LABS: Glucose,Whole Blood 182 mg/dL (75-99)
--- NOTE | 2018-11-01 13:45 | PN ---
PROGRESS NOTE This patient is status post extensive anterior wall myocardial infarction. The patient is feeling better. He had some episode of shortness of breath yesterday. He is his feeling better. No orthopnea or PND were noted. Blood pressure is 90/60 mmHg, heart rate is 87 per minute. First and second heart sounds are normal. Lungs are clinically clear to auscultation and percussion. No dysrhythmias are noted. The patient's electrolytes are normal. We will continue the current medications. Patient will be ambulated. If patient remains well, he will be able to be discharged tomorrow on LifeVest. MMODL / IJN: [id number] /
[2018-11-01 17:03] LABS: Glucose,Whole Blood 146 mg/dL (75-99)
[2018-11-01] MEDS: ATORVASTATIN 80 MG TAB PO SCH (20:58)
[2018-11-01 21:03] LABS: Glucose,Whole Blood 193 mg/dL (75-99)
[2018-11-01] MEDS ORDERED: ACETAMINOPHEN TAB 325 MG TAB PO PRN (23:17)
[2018-11-02] MEDS: ZOLPIDEM 5 MG TAB PO PRN (01:02)
[2018-11-02 05:57] LABS: HCT 37.8 % (39.0-53.0); HGB 12.3 gm/dL (13.0-17.5); MCH 27.6 pg (25.0-35.0); MCHC 32.6 g/dL (31.0-37.0); MCV 84.7 fL (80.0-100.0); Mean Platelet Volume 7.5; Platelet Count 286 k/uL (150-450); RBC 4.46 m/uL (4.30-5.90); RDW 14.5 % (11.5-15.5); WBC 8.6 k/uL (3.8-10.6)
[2018-11-02 06:17] LABS: ALT 27 U/L (21-72); AST 35 U/L (17-59); Albumin 3.2 g/dL (3.5-5.0); Alkaline Phosphatase 88 U/L (38-126); Anion Gap 7 mmol/L; Blood Urea Nitrogen 18 mg/dL (9-20); Calcium 8.4 mg/dL (8.4-10.2); Carbon Dioxide 26 mmol/L (22-30); Chloride 105 mmol/L (98-107); Glucose 174 mg/dL (74-99); Magnesium 1.9 mg/dL (1.6-2.3); Potassium 3.9 mmol/L (3.5-5.1); Sodium 138 mmol/L (137-145); Total Bilirubin 0.8 mg/dL (0.2-1.3); Total Protein 5.5 g/dL (6.3-8.2)
[2018-11-02] MEDS ORDERED: Potassium Replacement Protocol 1 EACH MISC MISCELLANE PRN (06:37)
--- NOTE | 2018-11-02 06:58 | P.PN ---
Subjective this is a pleasant 53 years old malewith past medical history of asthma, coronary artery disease status post cardiac cath with the stents, diabetes mellitus, hyperlipidemia, hypertension, ex-cigarette smoker and substance abuse, chronic diarrhea. patient was recently released from skilled nursing on 10/25/2018. he presents because of chest pain and dyspneaone-day duration after he helped his son regarding up objects for his house. Patient came to the emergency room and found to have anterior segment ST elevation [place]. Patient underwent cardiac angiogram by superintendent [employer], he found to havecomplete occlusion of the left anterior descending coronary artery with patent stent in the right coronary arteries. Patient is status post stent placement in his LAD. After the procedure patient was sent to the ICU, is lying comfortably with no chest pain , however patient is complaining of from dyspnea at rest and with minimal exertion. his vitals are stable. He has mild leukocytosis at 10.7 K, BMP is unremarkable, sugar is around 200. Magnesium 1.8.chest x-ray: Interstitial edema, he got already 1 dose of Lasix 40 mg this morning. 10/31/2018 Patient was lying in bed comfortable with no chest pain or dyspnea. Patient is in the ICU for his heart disease. He is on aspirin and Plavix. Patient of extra dose of Lasix. Chest x-ray showing normal pulmonary vasculature. Cardiology team are reviewing the case and the recommend LifeVest for the harris ent in view of his low ejection fraction of 20-25%. Patient also has srod-ln-[id number] mitral regurgitation. He is currently on lisinopril and metoprolol. He is hemodynamically stable. Glucose is controlled. 11/01/[address] elevation myocardial infarction, status post stent placement in his LAD. pt is feeling better , no chest pain or dyspnea and he was asking me this morning when he can go home . and wants to be discharged. pt is pending Lifevest for his severe EF of 20-25%. cardiology team input is appreciated Objective - Vital Signs Vital signs: Vital Signs Temp 98.4 F 11/01/18 20:00 Pulse 108 H 11/01/18 21:00 Resp 14 11/01/18 20:00 BP 109/81 11/01/18 21:00 Pulse Ox 93 L 11/01/18 21:00 Intake & Output 05/31/19 05/31/19 06/01/19 06:59 18:59 06:59 Intake Total 1280 1140 240 Output Total 1600 840 250 Balance -320 300 -10 Weight 131 kg Intake: IV 0 0 0.9ns 0 0 Oral 1280 1140 240 Output: Urine 1600 840 250 Other: Voiding Method Urinal # Voids 1 1 - Exam GENERAL: The patient is alert and oriented x3, not in any acute distress. Well developed, well nourished. HEENT: Pupils are round and equally reacting to light. EOMI. No scleral icterus. No conjunctival pallor. Normocephalic, atraumatic. No pharyngeal erythema. No thyromegaly. CARDIOVASCULAR: S1 and S2 present. No murmurs, rubs, or gallops. PULMONARY: Chest is clear to auscultation, no wheezing or crackles. ABDOMEN: Soft, nontender, nondistended, normoactive bowel sounds. No palpable organomegaly. MUSCULOSKELETAL: No joint swelling or deformity. EXTREMITIES: No cyanosis, clubbing, or pedal edema. NEUROLOGICAL: Gross neurological examination did not reveal any focal deficits. SKIN: No rashes. - Labs CBC & Chem 7: 11/02/18 05:45 11/02/18 05:45 Labs: Abnormal Lab Results - Last 24 Hours (Table) 11/01/18 11/01/18 11/01/18 Range/Units 04:27 04:27 07:33 Hgb 12.9 L (13.0-17.5) gm/dL Glucose 170 H (74-99) mg/dL POC Glucose (mg/dL) 168 H (75-99) mg/dL 11/01/18 11/01/18 11/01/18 Range/Units 12:04 16:51 20:52 Hgb (13.0-17.5) gm/dL Glucose (74-99) mg/dL POC Glucose (mg/dL) 182 H 146 H 193 H (75-99) mg/dL Assessment and Plan Assessment: anterior ST elevation myocardial infarction, status post stent placement in his LAD Acute and chronic systolic CHF, with ejection fraction 20-25% History of coronary artery disease with status post stent placement in his right coronary artery type2 diabetes mellitus Essential hypertension history of Nicotine dependence Hyperlipidemia chronic diarrhea Plan: this is a pleasant 53 years old male who presents with anterior STEMI, status post angiogram of the coronaries and stent placement in his LAD. Continue with dual antiplatelet therapy, metoprolol, and Lipitor. Cartilage team are following the patient closely. Labs and medication were reviewed.. Continue same treatment. Continue with symptomatic treatment. Resume home medication. Monitor lytes and vitals. DVT and GI prophylaxis. Further recommendations of the clinical course of the patient GI Prophylaxis: Gabinocid
[2018-11-02] MEDS: glipiZIDE 5 MG TAB PO SCH (07:00)
[2018-11-02] MEDS ORDERED: POTASSIUM CHLORIDE ER 20 MEQ TAB.ER PO SCH (07:00)
[2018-11-02] MEDS: INSULIN ASPART (NovoLOG) 100 UNIT/ML VIAL SQ SCH (07:01)
[2018-11-02 07:05] LABS: Glucose,Whole Blood 169 mg/dL (75-99)
[2018-11-02] MEDS: PRASUGREL 10 MG TAB PO SCH (08:00)
[2018-11-02] MEDS: CITALOPRAM HYDROBROMIDE 20 MG TAB PO SCH (08:01)
[2018-11-02] MEDS: ASPIRIN 325 MG TAB PO SCH (08:01)
[2018-11-02] MEDS: TAMSULOSIN 0.4 MG CAP.ER.24H PO SCH (08:01)
[2018-11-02] MEDS: METOPROLOL TARTRATE 25 MG TAB PO SCH (08:01)
[2018-11-02] MEDS: FUROSEMIDE 20 MG TAB PO SCH (08:01)
[2018-11-02] MEDS: LISINOPRIL 2.5 MG TAB PO SCH (08:01)
[2018-11-02 10:49] VITALS: BP 102/78; PULSE 80; RESP 10; TEMP 98
--- NOTE | 2018-11-02 15:19 | PN ---
PROGRESS NOTE This patient was admitted with acute inferior wall myocardial infarction. Patient is doing well. Denies any chest pain. Denies any shortness of breath. In view of the severely impaired left ventricular systolic function, patient will be discharged home on the life vest. Blood pressure is 102/78 mmHg. First and second heart sounds are normal. Lungs are clinically clear to auscultation and percussion. Patient is educated regarding the medications. MMODL / IJN: [id number] /
== END 2018-11-02 13:02 | disposition home or self-care (01) | DRG 246 ==
LOC: EC 18:42 → 2SICU 18:59
PROVIDERS: ADMIT Hospitalist; ATTEND Hospitalist
PROC: 4A023N7 Measurement of Cardiac Sampling and Pressure, Left Heart, Percutaneous Approach (ICD-10-PCS; 2018-10-29)
PROC: B2111ZZ Fluoroscopy of Multiple Coronary Arteries using Low Osmolar Contrast (ICD-10-PCS; 2018-10-29)
PROC: 027034Z Dilation of Coronary Artery, One Artery with Drug-eluting Intraluminal Device, Percutaneous Approach (ICD-10-PCS; principal; 2018-10-29 19:00)
PROC: 02C03ZZ Extirpation of Matter from Coronary Artery, One Artery, Percutaneous Approach (ICD-10-PCS; 2018-10-29 19:00)
DX: I21.09 ST elevation (STEMI) myocardial infarction involving other coronary artery of anterior wall (principal); I50.23 Acute on chronic systolic (congestive) heart failure; I25.10 Atherosclerotic heart disease of native coronary artery without angina pectoris; I25.82 Chronic total occlusion of coronary artery; F32.9 Major depressive disorder, single episode, unspecified; I71.2 Thoracic aortic aneurysm, without rupture; E66.9 Obesity, unspecified; E11.9 Type 2 diabetes mellitus without complications; E78.5 Hyperlipidemia, unspecified; F17.200 Nicotine dependence, unspecified, uncomplicated; I11.0 Hypertensive heart disease with heart failure; I34.0 Nonrheumatic mitral (valve) insufficiency; J45.909 Unspecified asthma, uncomplicated; K52.9 Noninfective gastroenteritis and colitis, unspecified; I25.2 Old myocardial infarction; Z79.82 Long term (current) use of aspirin; Z79.899 Other long term (current) drug therapy; Z79.84 Long term (current) use of oral hypoglycemic drugs; Z95.5 Presence of coronary angioplasty implant and graft; Z79.02 Long term (current) use of antithrombotics/antiplatelets; Z79.51 Long term (current) use of inhaled steroids; Z82.49 Family history of ischemic heart disease and other diseases of the circulatory system; Z83.3 Family history of diabetes mellitus
CPT/HCPCS: 71045; 80048; 80053; 83735; 83880; 85025; 85027; 93306; 93458; 94640; 96365; 96372; 96375; 96376; 99285; C1874

== ENCOUNTER 2018-11-10 08:32 | Inpatient (IN) | payer OTHER ==
[2018-11-10] MEDS ORDERED: NITROGLYCERIN OINT 1 INCH/GM PACKET TOPICAL STA (08:47)
[2018-11-10] MEDS ORDERED: FUROSEMIDE 10 MG/ML 4 ML VIAL IV STA (08:47)
--- NOTE | 2018-11-10 08:56 | ED ---
General Adult HPI - General Chief complaint: Shortness of Breath Stated complaint: SULY Time Seen by Provider: 11/10/18 08:35 Source: patient, RN notes reviewed Mode of arrival: wheelchair Limitations: no limitations - History of Present Illness Initial comments: This is a 53-year-old male with past medical history significant for COPD and diabetes. Patient also has had a recent history of a stent placement about 10 days ago. Patient comes in today because he states he's been having difficulty breathing all night long got really bad this morning when he tried to exert himself. Patient states he had to go down to his knees to catch his breath. P atient states she's had chest discomfort since he left the hospital that is no worse today than it has been. Patient states he has had increased swelling of his legs lately as well. Patient denies any recent fever or cough. Patient denies any abdominal pain. Patient denies nausea vomiting. Patient denies headache patient denies numbness weakness. Patient denies lightheadedness dizziness or near syncopal episode. - Related Data Home Medications Medication Instructions Recorded Confirmed metFORMIN HCL 1,000 mg PO BID 01/21/16 10/30/18 Albuterol Sulfate [Proair Hfa] 1 - 2 puff INHALATION RT-Q6H PRN 10/30/18 10/30/18 Citalopram Hydrobromide [CeleXA] 40 mg PO DAILY 10/30/18 10/30/18 Ipratropium [place] [Atrovent Hfa] 2 puff INHALATION RT-QID PRN 10/30/18 10/30/18 Naproxen Sodium [Aleve] 220 mg PO BID PRN 10/30/18 10/30/18 Tamsulosin HCl [Flomax] 0.4 mg PO DAILY 10/30/18 10/30/18 glipiZIDE [Glucotrol] 10 mg PO BID 10/30/18 10/30/18 Previous Rx's Medication Instructions Recorded Ranitidine HCl [Zantac] 150 mg PO BID #20 tab 07/21/15 Aspirin 325 mg PO DAILY tab 11/02/18 Atorvastatin [Lipitor] 80 mg PO HS #90 tab 11/02/18 Furosemide [Lasix] 20 mg PO DAILY #90 tab 11/02/18 Lisinopril [Zestril] 2.5 mg PO BID #90 tab 11/02/18 Metoprolol Tartrate [Lopressor] 25 mg PO BID #180 tab 11/02/18 Prasugrel [Effient] 10 mg PO DAILY #90 tab 11/02/18 Allergies Allergy/AdvReac Type Severity Reaction Status Date / Time No Known Allergies Allergy Verified 11/10/18 08:37 Review of Systems ROS Statement: Those systems with pertinent positive or pertinent negative responses have been documented in the HPI. ROS Other: All systems not noted in ROS Statement are negative. Past Medical History Past Medical History: Asthma, Coronary Artery Disease (CAD), Chest Pain / Angina, Diabetes Mellitus, Hyperlipidemia, Hypertension, Myocardial Infarction ([place]) Additional Past Medical History / Comment(s): Coronary artery disease with prev ious insertion of coronary stents, obesity, hypertension, hyperlipidemia, diabetes mellitus, DEPRESSION, ascending aortic aneurysm measuring 4.3 cm in size Last Myocardial Infarction Date:: 08/05/2013 History of Any Multi-Drug Resistant Organisms: None Reported Past Surgical History: Cholecystectomy, Heart Catheterization With Stent, Tonsillectomy Past Anesthesia/Blood Transfusion Reactions: No Reported Reaction Date of Last Stent Placement:: 08/05/2013 stent x 2 to RCA Past Psychological History: Depression Smoking Status: Current every day smoker Past Alcohol Use History: None Reported Past Drug Use History: None Reported - Past Family History Father Family Medical History: Diabetes Mellitus Additional Family Medical History / Comment(s): HAD HEART ATTACK Mother Family Medical History: Diabetes Mellitus Additional Family Medical History / Comment(s): HAD HEART ATTACK General Exam - General Exam Comments Initial Comments: GENERAL: Patient is well-developed and well-nourished. Patient is nontoxic and well- hydrated and is in mild distress. ENT: Neck is soft and supple. No significant lymphadenopathy is noted. Oropharynx is clear. Moist mucous membranes. Neck has full range of motion without eliciting any pain. EYES: The sclera were anicteric and conjunctiva were pink and moist. Extraocular movements were intact and pupils were equal round and reactive to light. Eyelids were unremarkable. PULMONARY: Patient is crackles bilateral bases CARDIOVASCULAR: There is a regular rate and rhythm without any murmurs gallops or rubs. ABDOMEN: Soft and nontender with normal bowel sounds. SKIN: Skin is clear with no lesions or rashes and otherwise unremarkable. NEUROLOGIC: Patient is alert and oriented x3. Cranial nerves II through XII are grossly intact. Motor and sensory are also intact. Normal speech, volume and content. Symmetrical smile. MUSCULOSKELETAL: Normal extremities with adequate strength and full range of motion. LYMPHATICS: No significant lymphadenopathy is noted PSYCHIATRIC: Normal psychiatric evaluation. Limitations: no limitations Course Vital Signs 11/10/18 11/10/18 08:35 10:13 Temperature 98.1 F Pulse Rate 86 81 Respiratory 18 22 Rate Blood Pressure 105/79 103/76 O2 Sat by Pulse 98 97 Oximetry Medical Decision Making - Medical Decision Making EKG shows normal sinus rhythm at 83 bpm MO interval 244 QRS is 96 Q-T intervals 44 QTC is 568. Patient's EKG shows inverted T waves in leads V2 through the 6. As well as lateral leads 1 and aVL. EKG is compared to old EKGs no acute abnormalities noted. Chest x-ray shows cardiomegaly a with effusions. Patient has crackles in the bases as well as edema in the legs and a BNP of 10,000/started the patient on Lasix. Patient's pressure was tentative so I did not give the Nitropaste at this time I started the patient heparin because of the elevated troponin and the continued chest discomfort. I spoke with Dr. Mena and they are aware of the patient and his troponin and chest pressure. I spoke with Dr. Trinidad he agreed to admit the patient admitted the patient wrote admitting orders to continue the heparin and Lasix and aspirin on the floor. - Lab Data Result diagrams: 11/10/18 09:00 11/10/18 09:00 Lab Results 11/10/18 11/10/18 11/10/18 Range/Units 09:00 09:00 09:00 WBC 11.2 H (3.8-10.6) k/uL RBC 4.77 (4.30-5.90) m/uL Hgb 13.2 (13.0-17.5) gm/dL Hct 40.6 (39.0-53.0) % MCV 85.1 (80.0-100.0) fL MCH 27.7 (25.0-35.0) pg MCHC 32.5 (31.0-37.0) g/dL RDW 16.5 H (11.5-15.5) % Plt Count 363 (150-450) k/uL Neutrophils % 74 % Lymphocytes % 19 % Monocytes % 5 % Eosinophils % 1 % Basophils % 0 % Neutrophils # 8.3 H (1.3-7.7) k/uL Lymphocytes # 2.1 (1.0-4.8) k/uL Monocytes # 0.5 (0-1.0) k/uL Eosinophils # 0.1 (0-0.7) k/uL Basophils # 0.1 (0-0.2) k/uL Hypochromasia Slight Poikilocytosis Slight Anisocytosis Slight PT (9.0-12.0) sec INR (<1.2) APTT (22.0-30.0) sec Sodium 140 (137-145) mmol/L Potassium 4.1 (3.5-5.1) mmol/L Chloride 106 (98-107) mmol/L Carbon Dioxide 25 (22-30) mmol/L Anion Gap 9 mmol/L BUN 15 (9-20) mg/dL Creatinine 0.80 (0.66-1.25) mg/dL Est GFR (CKD-EPI)AfAm >90 (>60 ml/min/1.73 sqM) Est GFR (CKD-EPI)NonAf >90 (>60 ml/min/1.73 sqM) Glucose 236 H (74-99) mg/dL Calcium 8.7 (8.4-10.2) mg/dL Magnesium 1.6 (1.6-2.3) mg/dL Total Bilirubin 0.7 (0.2-1.3) mg/dL AST 34 (17-59) U/L ALT 119 H (21-72) U/L Alkaline Phosphatase 95 (38-126) U/L Troponin I (0.000-0.034) ng/mL NT-Pro-B Natriuret Pep 03985 pg/mL Total Protein 5.7 L (6.3-8.2) g/dL Albumin 3.6 (3.5-5.0) g/dL 11/10/18 11/10/18 Range/Units 09:00 09:00 WBC (3.8-10.6) k/uL RBC (4.30-5.90) m/uL Hgb (13.0-17.5) gm/dL Hct (39.0-53.0) % MCV (80.0-100.0) fL MCH (25.0-35.0) pg MCHC (31.0-37.0) g/dL RDW (11.5-15.5) % Plt Count (150-450) k/uL Neutrophils % % Lymphocytes % % Monocytes % % Eosinophils % % Basophils % % Neutrophils # (1.3-7.7) k/uL Lymphocytes # (1.0-4.8) k/uL Monocytes # (0-1.0) k/uL Eosinophils # (0-0.7) k/uL Basophils # (0-0.2) k/uL Hypochromasia Poikilocytosis Anisocytosis PT 11.4 (9.0-12.0) sec INR 1.1 (<1.2) APTT 23.8 (22.0-30.0) sec Sodium (137-145) mmol/L Potassium (3.5-5.1) mmol/L Chloride (98-107) mmol/L Carbon Dioxide (22-30) mmol/L Anion Gap mmol/L BUN (9-20) mg/dL Creatinine (0.66-1.25) mg/dL Est GFR (CKD-EPI)AfAm (>60 ml/min/1.73 sqM) Est GFR (CKD-EPI)NonAf (>60 ml/min/1.73 sqM) Glucose (74-99) mg/dL Calcium (8.4-10.2) mg/dL Magnesium (1.6-2.3) mg/dL Total Bilirubin (0.2-1.3) mg/dL AST (17-59) U/L ALT (21-72) U/L Alkaline Phosphatase (38-126) U/L Troponin I 0.465 H* (0.000-0.034) ng/mL NT-Pro-B Natriuret Pep pg/mL Total Protein (6.3-8.2) g/dL Albumin (3.5-5.0) g/dL Critical Care Time Critical Care Time: Yes Total Critical Care Time: 35 Disposition Clinical Impression: Non-STEMI (non-ST elevated myocardial infarction), Pulmonary edema, Pedal edema Disposition: ADMITTED IP TO THIS HOSP Referrals: Roosevelt Moulton MD [Primary Care Provider] - 1-2 days Time of Disposition: 10:22
[2018-11-10 09:36] LABS: Anisocytosis Slight; Basophils # (A) 0.1 k/uL (0-0.2); Basophils % (A) 0 %; Eosinophils # (A) 0.1 k/uL (0-0.7); Eosinophils % (A) 1 %; HCT 40.6 % (39.0-53.0); HGB 13.2 gm/dL (13.0-17.5); Hypochromasia Slight; Lymphocytes # (A) 2.1 k/uL (1.0-4.8); Lymphocytes % (A) 19 %; MCH 27.7 pg (25.0-35.0); MCHC 32.5 g/dL (31.0-37.0); MCV 85.1 fL (80.0-100.0); Mean Platelet Volume 7.4; Monocytes # (A) 0.5 k/uL (0-1.0); Monocytes % (A) 5 %; Neutrophils # (A) 8.3 k/uL (1.3-7.7); Neutrophils % (A) 74 %; Platelet Count 363 k/uL (150-450); Poikilocytosis Slight; RBC 4.77 m/uL (4.30-5.90); RDW 16.5 % (11.5-15.5); WBC 11.2 k/uL (3.8-10.6)
[2018-11-10 09:38] LABS: INR 1.1 (<1.2); Partial Thromboplastin Time 23.8 sec (22.0-30.0); Prothrombin Time 11.4 sec (9.0-12.0)
[2018-11-10 09:44] LABS: ALT 119 U/L (21-72); AST 34 U/L (17-59); African American GFR (CKD) >90 (>60 ml/min/1.73 sqM); Albumin 3.6 g/dL (3.5-5.0); Alkaline Phosphatase 95 U/L (38-126); Anion Gap 9 mmol/L; Blood Urea Nitrogen 15 mg/dL (9-20); Calcium 8.7 mg/dL (8.4-10.2); Carbon Dioxide 25 mmol/L (22-30); Chloride 106 mmol/L (98-107); Glucose 236 mg/dL (74-99); Magnesium 1.6 mg/dL (1.6-2.3); Potassium 4.1 mmol/L (3.5-5.1); Sodium 140 mmol/L (137-145); Total Bilirubin 0.7 mg/dL (0.2-1.3); Total Protein 5.7 g/dL (6.3-8.2)
--- NOTE | 2018-11-10 10:01 | XR ---
EXAMINATION TYPE: XR chest 2V DATE OF EXAM: 11/10/2018 HISTORY: difficulty breathing. REFERENCE: Previous study dated 10/31/2018. FINDINGS: The heart is mildly enlarged. The lungs are clear. Pleural spaces are clear. IMPRESSION: MILD CARDIOMEGALY.
[2018-11-10] MEDS ORDERED: FUROSEMIDE 10 MG/ML 2 ML VIAL IV STA (10:15)
[2018-11-10] MEDS ORDERED: HEPARIN SODIUM,PORCINE 5,000 UNIT/ML 1 ML VIAL IV ONE (10:22)
[2018-11-10] MEDS ORDERED: ASPIRIN 325 MG TAB PO STA (10:23)
[2018-11-10] MEDS: HEPARIN SOD,PORK IN 0.45% NACL 25,000 UNIT in 0.45% NACL 1 250ML.BAG IV SCH (12:20)
[2018-11-10] MEDS ORDERED: IPRATROPIUM 0.5 MG/2.5 ML NEBU INHALATION PRN ×2 (13:33→13:37)
[2018-11-10] MEDS ORDERED: FUROSEMIDE 10 MG/ML 4 ML VIAL IV SCH (16:00)
--- NOTE | 2018-11-10 16:03 | P.HPIM ---
History of Present Illness 53-year-old male came in with comments of shortness of breath orthopnea no clear history of proximal nocturnal dyspnea. Patient had EF of 425% patient is a recent myocardial infarction and recent stenting. Does have multiple other medical problems patient does have a highly elevated BNP I'm unable to appreciate JVD. Patient doesn't have any significant pedal edema patient does have significant crackles on exam patient was started on IV Lasix. Patient does have bronchovascular marking consistent with congestive heart failure which is reviewed by me. Very minimal pleural effusions. Patient does have minimally elevated troponin of 0.465 and a vague area pressure-like pain in the chest. Patient's EKG showed nonspecific ST-T wave changes and notched QRS complexes consistent with the right ventricular hypertrophy, may have sleep apnea is morbidly obese, last RVSP is 34. Review of Systems REVIEW OF SYSTEMS: CONSTITUTIONAL: No fever, no malaise, no fatigue. HEENT: No recent visual problems or hearing problems. Denied any sore throat. CARDIOVASCULAR: no palpitations, no syncope. PULMONARY: no hemoptysis. GASTROINTESTINAL: No diarrhea, no nausea, no vomiting, no abdominal pain. NEUROLOGICAL: No headaches, no weakness, no numbness. HEMATOLOGICAL: Denies any bleeding or petechiae. GENITOURINARY: Denies any burning micturition, frequency, or urgency. MUSCULOSKELETAL/RHEUMATOLOGICAL: Denies any joint pain, swelling, or any muscle pain. ENDOCRINE: Denies any polyuria or polydipsia. The rest of the 14-point review of systems is negative. Past Medical History Past Medical History: Asthma, Coronary Artery Disease (CAD), Chest Pain / Angina, COPD, Diabetes Mellitus, Hypertension, Myocardial Infarction (NH) Additional Past Medical History / Comment(s): Coronary artery disease with previous insertion of coronary stents, obesity, hypertension, hyperlipidemia, diabetes mellitus, DEPRESSION, ascending aortic aneurysm measuring 4.3 cm in size Last Myocardial Infarction Date:: 10/29/2018 History of Any Multi-Drug Resistant Organisms: None Reported Past Surgical History: Cholecystectomy, Heart Catheterization With Stent, Tonsil lectomy Past Anesthesia/Blood Transfusion Reactions: No Reported Reaction Date of Last Stent Placement:: 10/29/2018 1 stent placed Past Psychological History: Depression Smoking Status: Current every day smoker Past Alcohol Use History: None Reported Past Drug Use History: None Reported - Past Family History Father Family Medical History: Diabetes Mellitus Additional Family Medical History / Comment(s): HAD HEART ATTACK Mother Family Medical History: Diabetes Mellitus Additional Family Medical History / Comment(s): HAD HEART ATTACK Medications and Allergies Home Medications Medication Instructions Recorded Confirmed Type Ranitidine HCl [Zantac] 150 mg PO BID #20 tab 07/21/15 11/10/18 Rx metFORMIN HCL 1,000 mg PO BID 01/21/16 11/10/18 History Albuterol Sulfate [Proair Hfa] 1 - 2 puff INHALATION RT-Q6H PRN 10/30/18 11/10/18 History Ipratropium [place] [Atrovent Hfa] 2 puff INHALATION RT-QID PRN 10/30/18 11/10/18 History Tamsulosin HCl [Flomax] 0.4 mg PO DAILY 10/30/18 11/10/18 History glipiZIDE [Glucotrol] 10 mg PO BID 10/30/18 11/10/18 History Aspirin 325 mg PO DAILY tab 11/02/18 11/10/18 Rx Atorvastatin [Lipitor] 80 mg PO HS #90 tab 11/02/18 11/10/18 Rx Lisinopril [Zestril] 2.5 mg PO BID #90 tab 11/02/18 11/10/18 Rx Metoprolol Tartrate [Lopressor] 25 mg PO BID #180 tab 11/02/18 11/10/18 Rx Prasugrel [Effient] 10 mg PO DAILY #90 tab 11/02/18 11/10/18 Rx Furosemide [Lasix] 40 mg PO BID 11/10/18 11/10/18 History Venlafaxine HCl [Effexor XR] 37.5 mg PO DAILY 11/10/18 11/10/18 History Allergies Allergy/AdvReac Type Severity Reaction Status Date / Time No Known Allergies Allergy Verified 11/10/18 08:37 Physical Exam Vitals: Vital Signs Temp Pulse Pulse Resp BP BP Pulse Ox 11/10/18 14:46 98 F 83 18 102/72 97 11/10/18 13:06 75 11/10/18 12:23 80 18 106/78 95 11/10/18 11:37 97.5 F L 78 18 101/65 93 L 11/10/18 10:13 81 22 103/76 97 11/10/18 08:35 98.1 F 86 18 105/79 98 Intake and Output 11/10/18 11/10/18 11/10/18 06:59 14:59 22:59 Intake Total 20 Balance 20 Intake: Amount of Fluid Infused ( 20 ml) Other: Weight 129.274 kg PHYSICAL EXAMINATION: GENERAL: The patient is alert and oriented x3, not in any acute distress. Obese HEENT: Pupils are round and equally reacting to light. EOMI. No scleral icterus. No conjunctival pallor. Normocephalic, atraumatic. No pharyngeal erythema. No thyromegaly. CARDIOVASCULAR: S1 and S2 present. No murmurs, rubs, or gallops. PULMONARY: Diffuse crackles posteriorly ABDOMEN: Soft, nontender, nondistended, normoactive bowel sounds. No palpable organomegaly. MUSCULOSKELETAL: No joint swelling or deformity. EXTREMITIES: No cyanosis, clubbing, or pedal edema. NEUROLOGICAL: Gross neurological examination did not reveal any focal deficits. SKIN: No rashes. Results CBC & Chem 7: 11/10/18 09:00 11/10/18 09:00 Labs: Abnormal Lab Results - Last 24 Hours (Table) 11/10/18 11/10/18 11/10/18 Range/Units 09:00 09:00 09:00 WBC 11.2 H (3.8-10.6) k/uL RDW 16.5 H (11.5-15.5) % Neutrophils # 8.3 H (1.3-7.7) k/uL Glucose 236 H (74-99) mg/dL ALT 119 H (21-72) U/L Troponin I 0.465 H* (0.000-0.034) ng/mL Total Protein 5.7 L (6.3-8.2) g/dL Thrombosis Risk Factor Assmnt - Choose All That Apply Any of the Below Risk Factors Present?: Yes Each Factor Represents 1 point: Abnormal pulmonary function (COPD), Age 41-60 years, Heart failure (<1month) Other Risk Factors: No Other congenital or acquired thrombophilia - If yes, enter type in comment: No Thrombosis Risk Factor Assessment Total Risk Factor Score: 3 Thrombosis Risk Factor Assessment Level: Moderate Risk Assessment and Plan Plan: Shortness of breath: Probably secondary to Start failure chronic systolic dysfunction with acute exacerbation patient was started on IV Lasix which will be continued patient also started on lisinopril which probably can be continued as well. Patient had ejection fraction of 20 to drink Waldo -Elevated troponin probably secondary to his recent cardiac catheterization but the patient's does have chest pain to cardiology will evaluate the patient -Non-coronary artery disease COPD without any significant exacerbation -Morbid obesity possibility of sleep apnea cannot be ruled out will require a sl eep study -Nicotine abuse: Counseling was provided -Diabetes mellitus -Hypertension -Recent microinfarction. -Depression Patient appears to be noncompliant with diet, counseling regarding this was pro vided
[2018-11-10 17:09] LABS: Glucose,Whole Blood 150 mg/dL (75-99)
[2018-11-10] MEDS: CARVEDILOL 1.563 MG TAB PO SCH ×2 (18:09→18:43)
[2018-11-10] MEDS: FAMOTIDINE 20 MG TAB PO SCH (19:47)
[2018-11-10] MEDS: glipiZIDE 10 MG TAB PO SCH (19:47)
[2018-11-10] MEDS: ATORVASTATIN 80 MG TAB PO SCH (19:47)
[2018-11-10] MEDS: FUROSEMIDE 10 MG/ML 4 ML VIAL IV SCH (19:47)
[2018-11-10 20:45] LABS: Glucose,Whole Blood 194 mg/dL (75-99)
[2018-11-10] MEDS ORDERED: METOPROLOL TARTRATE 25 MG TAB PO SCH (21:00)
[2018-11-11 06:05] LABS: Glucose,Whole Blood 181 mg/dL (75-99)
[2018-11-11] MEDS: CARVEDILOL 1.563 MG TAB PO SCH ×2 (06:13→17:14)
--- NOTE | 2018-11-11 08:06 | P.CRDCN ---
History of Present Illness Consult date: 11/11/18 Requesting physician: Conchita Trinidad Consult reason: chest pain, shortness of breath Chief complaint: Chest pressure and shortness of breath History of present illness: This is a 53-year-old gentleman who was just recently in the hospital with chest pain, he underwent an aspiration thrombectomy of the LAD was successful stenting of the proximal LAD by Dr. Duvall. He has a known history of coronary artery disease with prior RCA stenting, diabetes, hypertension, hyperlipidemia. He was discharged home from the hospital on November 02, patient states that since his discharge home he's been having episodes of shortness of breath with associated chest pressure. He also states that he's been unable to lie flat in bed because he can't breathe. Patient also states that over the past couple of days he has noticed an increase in his peripheral edema to his lower extremities. Patient states he was taking his medications at home as prescribed. His EKG on presentation here showed a normal sinus rhythm with ST-T wave changes noted in the anterior lateral leads. Chest x-ray showed mild cardiomegaly. White blood cell count 11.2, hemoglobin 13.2, platelet count 363. Sodium 140, potassium 4.1, BUN 15 creatinine 0.8. Magnesium 1.6. Troponin 0.46, 0.43, 0.42. BNP 10,300. Blood pressure on arrival here 105/79 with a heart rate in the 80s, afebrile. At the time of my examination this morning, patient is currently chest pain-free. Patient is currently on aspirin, Lipitor, Coreg, IV Lasix, IV heparin, lisinopril, Nitropaste, and Effient. Patient had an echocardiogram with Doppler study performed on October 30 which revealed an ejection fraction of 20-25%, mild to moderate mitral regurgitation. Past Medical History Past Medical History: Asthma, Coronary Artery Disease (CAD), Chest Pain / Angina, COPD, Diabetes Mellitus, Hypertension, Myocardial Infarction (NH) Additional Past Medical History / Comment(s): Coronary artery disease with previous insertion of coronary stents, obesity, hypertension, hyperlipidemia, diabetes mellitus, DEPRESSION, ascending aortic aneurysm measuring 4.3 cm in size Last Myocardial Infarction Date:: 10/29/2018 History of Any Multi-Drug Resistant Organisms: None Reported Past Surgical History: Cholecystectomy, Heart Catheterization With Stent, Tonsillectomy Past Anesthesia/Blood Transfusion Reactions: No Reported Reaction Date of Last Stent Placement:: 10/29/2018 1 stent placed Past Psychological History: Depression Smoking Status: Current every day smoker Past Alcohol Use History: None Reported Past Drug Use History: None Reported - Past Family History Father Family Medical History: Diabetes Mellitus Additional Family Medical History / Comment(s): HAD HEART ATTACK Mother Family Medical History: Diabetes Mellitus Additional Family Medical History / Comment(s): HAD HEART ATTACK Medications and Allergies Home Medications Medication Instructions Recorded Confirmed Type Ranitidine HCl [Zantac] 150 mg PO BID #20 tab 07/21/15 11/10/18 Rx metFORMIN HCL 1,000 mg PO BID 01/21/16 11/10/18 History Albuterol Sulfate [Proair Hfa] 1 - 2 puff INHALATION RT-Q6H PRN 10/30/18 11/10/18 History Ipratropium [place] [Atrovent Hfa] 2 puff INHALATION RT-QID PRN 10/30/18 11/10/18 History Tamsulosin HCl [Flomax] 0.4 mg PO DAILY 10/30/18 11/10/18 History glipiZIDE [Glucotrol] 10 mg PO BID 10/30/18 11/10/18 History Aspirin 325 mg PO DAILY tab 11/02/18 11/10/18 Rx Atorvastatin [Lipitor] 80 mg PO HS #90 tab 11/02/18 11/10/18 Rx Lisinopril [Zestril] 2.5 mg PO BID #90 tab 11/02/18 11/10/18 Rx Metoprolol Tartrate [Lopressor] 25 mg PO BID #180 tab 11/02/18 11/10/18 Rx Prasugrel [Effient] 10 mg PO DAILY #90 tab 11/02/18 11/10/18 Rx Furosemide [Lasix] 40 mg PO BID 11/10/18 11/10/18 History Venlafaxine HCl [Effexor XR] 37.5 mg PO DAILY 11/10/18 11/10/18 History Allergies Allergy/AdvReac Type Severity Reaction Status Date / Time No Known Allergies Allergy Verified 11/10/18 08:37 Physical Exam Vitals: Vital Signs Temp Pulse Pulse Resp BP BP Pulse Ox 11/11/18 03:27 81 16 109/70 97 11/11/18 00:00 87 18 111/72 94 L 11/10/18 20:00 97.8 F 90 20 111/72 94 L 11/10/18 16:00 75 11/10/18 14:46 98 F 83 18 102/72 97 11/10/18 13:06 75 11/10/18 12:23 80 18 106/78 95 11/10/18 11:37 97.5 F L 78 18 101/65 93 L 11/10/18 10:13 81 22 103/76 97 11/10/18 08:35 98.1 F 86 18 105/79 98 Intake and Output 11/10/18 11/11/18 11/11/18 22:59 06:59 14:59 Intake Total 433.282 342.645 Output Total 400 375 Balance 33.282 -32.355 Intake: Intake, IV Titration 73.282 102.645 Amount Heparin Sod,Pork in 0.45% 73.282 102.645 NaCl 25,000 unit In 0.45 % NaCl 1 250ml.bag @ 7.73 UNITS/KG/HR 9.993 mls/hr IV .Q24H [facility] Rx#: [id number] Oral 360 240 Output: Urine 400 375 Other: Voiding Method Toilet Urinal # Voids 1 Weight 132.8 kg PHYSICAL EXAMINATION: GENERAL: 53-year-old gentleman in no acute distress at the time of my examination HEENT: Head is atraumatic, normocephalic. Pupils equal, round. Sclera anicteric. Conjunctiva are clear. Mucous membranes of the mouth are moist. Neck is supple. There is elevated jugular venous pressure. No carotid bruit is heard. HEART EXAMINATION: S1 and S2 systolic murmur is heard CHEST EXAMINATION: Lungs reveal diminished air entry to bilateral bases with fine rales bilaterally ABDOMEN: Soft, obese, nontender. Bowel sounds are heard. No organomegaly noted. EXTREMITIES: 2+ peripheral pulses with 1-2+ evidence of peripheral edema and no calf tenderness noted. NEUROLOGIC patient is awake, alert and oriented 3 . Results 11/10/18 09:00 11/10/18 09:00 Cardiac Enzymes 11/10/18 11/10/18 11/10/18 Range/Units 09:00 09:00 15:21 AST 34 (17-59) U/L Troponin I 0.465 H* 0.434 H* (0.000-0.034) ng/mL 11/10/18 Range/Units 21:15 AST (17-59) U/L Troponin I 0.426 H* (0.000-0.034) ng/mL Coagulation 11/10/18 11/10/18 11/11/18 Range/Units 09:00 18:33 01:46 PT 11.4 (9.0-12.0) sec APTT 23.8 24.4 29.3 (22.0-30.0) sec CBC 11/10/18 Range/Units 09:00 WBC 11.2 H (3.8-10.6) k/uL RBC 4.77 (4.30-5.90) m/uL Hgb 13.2 (13.0-17.5) gm/dL Hct 40.6 (39.0-53.0) % Plt Count 363 (150-450) k/uL Comprehensive Metabolic Panel 11/10/18 Range/Units 09:00 Sodium 140 (137-145) mmol/L Potassium 4.1 (3.5-5.1) mmol/L Chloride 106 (98-107) mmol/L Carbon Dioxide 25 (22-30) mmol/L BUN 15 (9-20) mg/dL Creatinine 0.80 (0.66-1.25) mg/dL Glucose 236 H (74-99) mg/dL Calcium 8.7 (8.4-10.2) mg/dL AST 34 (17-59) U/L ALT 119 H (21-72) U/L Alkaline Phosphatase 95 (38-126) U/L Total Protein 5.7 L (6.3-8.2) g/dL Albumin 3.6 (3.5-5.0) g/dL Current Medications Generic Name Dose Route Start Last Admin Trade Name Freq PRN Reason Stop Dose Admin Aspirin 325 mg 11/11/18 09:00 Aspirin PO DAILY [facility] Atorvastatin Calcium 80 mg 11/10/18 21:00 11/10/18 19:47 Lipitor PO 80 mg HS [facility] Administration Carvedilol 1.563 mg 11/10/18 11:30 11/11/18 06:13 Coreg PO 1.563 mg BID-W/MEALS [facility] Administration Famotidine 20 mg 11/10/18 21:00 11/10/18 19:47 Pepcid PO 20 mg BID [facility] Administration Furosemide 40 mg 11/10/18 21:00 11/10/18 19:47 Lasix IV 40 mg BID [facility] Administration Glipizide 10 mg 11/10/18 21:00 11/10/18 19:47 Glucotrol PO 10 mg BID [facility] Administration Heparin Sodium/Sodium Chloride 250 mls @ 9.993 mls/hr 11/10/18 10:30 11/11/18 03:04 25,000 unit/ Sodium Chloride IV 13.73 units/kg/hr .Q24H [facility] 17.749 mls/hr Titration Protocol 7.73 UNITS/KG/HR Ipratropium [place] 0.5 mg 11/10/18 13:37 Atrovent Nebulized INHALATION RT-QID PRN Shortness Of Breath Lisinopril 2.5 mg 11/11/18 09:00 Zestril PO DAILY [facility] Prasugrel 10 mg 11/11/18 09:00 Effient PO DAILY [facility] Tamsulosin HCl 0.4 mg 11/11/18 09:00 Flomax PO DAILY [facility] Venlafaxine HCl 37.5 mg 11/11/18 09:00 Effexor Xr PO DAILY [facility] Intake and Output 11/10/18 11/11/18 11/11/18 22:59 06:59 14:59 Intake Total 433.282 342.645 Output Total 400 375 Balance 33.282 -32.355 Intake: Intake, IV Titration 73.282 102.645 Amount Heparin Sod,Pork in 0.45% 73.282 102.645 NaCl 25,000 unit In 0.45 % NaCl 1 250ml.bag @ 7.73 UNITS/KG/HR 9.993 mls/hr IV .Q24H [facility] Rx#: [id number] Oral 360 240 Output: Urine 400 375 Other: Voiding Method Toilet Urinal # Voids 1 Weight 132.8 kg 11/10/18 09:00 11/10/18 09:00 EKG Interpretations (text) EKG shows a normal sinus rhythm with anterior lateral ST-T wave changes Assessment and Plan Plan: Assessment and plan #1 symptoms of chest pressure and heaviness with associated shortness of breath, EKG shows normal sinus rhythm with anterior lateral ST-T wave changes. Troponins 0.46, 0.43, 0.42. Possible acute coronary syndrome #2 systolic congestive heart failure acute on chronic #3 recent stenting of the LAD with prior history of RCA stenting #4 diabetes #5 hyperlipidemia #6 hypertension #7 nicotine dependence #8 depression #9 ischemic cardiomyopathy with documented ejection fraction of 20-25%. Plan Patient is currently on IV heparin, he is also back on his dual antiplatelet therapy. He was also initiated on IV Lasix in the emergency room. We will repeat his echocardiogram with Doppler study, to assess the LV function. Continue to diurese the patient, patient is also been advised that he will need to undergo cardiac catheterization in view of the fact that the patient had a recent stent. Further recommendations to follow. DNP note has been reviewed, I agree with a documented findings and plan of care. Patient was seen and examined.
[2018-11-11] MEDS ORDERED: ASPIRIN 325 MG TAB PO SCH ×2 (09:00)
[2018-11-11] MEDS: TAMSULOSIN 0.4 MG CAP.ER.24H PO SCH (10:15)
[2018-11-11] MEDS: LISINOPRIL 2.5 MG TAB PO SCH (10:16)
[2018-11-11] MEDS: VENLAFAXINE HCL ER 37.5 MG CAP PO SCH (10:16)
[2018-11-11] MEDS: PRASUGREL 10 MG TAB PO SCH (10:16)
[2018-11-11] MEDS: glipiZIDE 10 MG TAB PO SCH ×2 (10:16→19:36)
[2018-11-11] MEDS: FAMOTIDINE 20 MG TAB PO SCH ×2 (10:16→19:36)
[2018-11-11] MEDS: FUROSEMIDE 10 MG/ML 4 ML VIAL IV SCH ×2 (10:17→21:20)
[2018-11-11] MEDS ORDERED: ALPRAZolam 0.5 MG TAB PO PRN (11:00)
--- NOTE | 2018-11-11 11:10 | P.PN ---
Subjective 53-year-old the male is being treated for heart failure exacerbation patient has EF of around 20-25%. Patient had elevated troponins some chest pressure because of which patient may end up needing cardiac catheterization and cardiology is evaluating for that. Patient will be continued on Lasix IV his respiratory status improved patient feels better today Constitutional: Denied any fatigue denied any fever. Cardio vascular: denied any chest pain, palpitations Gastrointestinal denied any nausea vomiting Pulmonary: Denied any shortness of breath cough Neurologic denied any new focal deficits All inpatient medications were reviewed and appropriate changes in these medications as dictated in the interval history and assessment and plan. Objective - Vital Signs Vital signs: Vital Signs Temp 97.8 F 11/10/18 20:00 Pulse 86 11/11/18 08:45 Resp 17 11/11/18 08:45 BP 126/66 11/11/18 08:45 Pulse Ox 94 L 11/11/18 08:45 Intake & Output 11/10/18 11/11/18 11/11/18 18:59 06:59 18:59 Intake Total 20 775.927 74.073 Output Total 775 300 Balance 20 0.927 -225.927 Weight 129.274 kg 132.8 kg Intake: Amount of Fluid Infused ( 20 ml) Intake, IV Titration 175.927 74.073 Amount Heparin Sod,Pork in 0.45% 175.927 74.073 NaCl 25,000 unit In 0.45 % NaCl 1 250ml.bag @ 7.73 UNITS/KG/HR 9.993 mls/hr IV .Q24H [facility] Rx#: [id number] Oral 600 Output: Urine 775 300 Other: Voiding Method Toilet Urinal # Voids 1 - Exam PHYSICAL EXAMINATION: GENERAL: The patient is alert and oriented x3, not in any acute distress. Obese HEENT: Pupils are round and equally reacting to light. EOMI. No scleral icterus. No conjunctival pallor. Normocephalic, atraumatic. No pharyngeal erythema. No thyromegaly. CARDIOVASCULAR: S1 and S2 present. No murmurs, rubs, or gallops. PULMONARY: Crackles improved, no wheezing was appreciated ABDOMEN: Soft, nontender, nondistended, normoactive bowel sounds. No palpable organomegaly. MUSCULOSKELETAL: No joint swelling or deformity. EXTREMITIES: No cyanosis, clubbing, or pedal edema. NEUROLOGICAL: Gross neurological examination did not reveal any focal deficits. SKIN: No rashes. - Labs CBC & Chem 7: 11/10/18 09:00 11/10/18 09:00 Labs: Abnormal Lab Results - Last 24 Hours (Table) 11/10/18 11/10/18 11/10/18 Range/Units 15:21 16:40 20:44 APTT (22.0-30.0) sec POC Glucose (mg/dL) 150 H 194 H (75-99) mg/dL Troponin I 0.434 H* (0.000-0.034) ng/mL 11/10/18 11/11/18 11/11/18 Range/Units 21:15 06:04 08:35 APTT 33.0 H (22.0-30.0) sec POC Glucose (mg/dL) 181 H (75-99) mg/dL Troponin I 0.426 H* (0.000-0.034) ng/mL Assessment and Plan Plan: Shortness of breath: Probably secondary to congestive heart failure chronic systolic dysfunction with acute exacerbation patient was started on IV Lasix which will be continued patient also started on lisinopril which probably can be continued as well. Patient had ejection fraction of 20 % -Elevated troponin probably secondary to his recent cardiac catheterization but the patient's does have chest pain to cardiology will evaluate the patient -coronary artery disease and possible non-ST elevation microinfarction patient may end up needing cardiac catheterization COPD without any significant exacerbation -Morbid obesity possibility of sleep apnea cannot be ruled out will require a sleep study -Nicotine abuse: Counseling was provided -Diabetes mellitus -Hypertension -Recent myocardial infarction -Depression Patient appears to be noncompliant with diet, counseling regarding this was provided
[2018-11-11 11:39] LABS: Glucose,Whole Blood 263 mg/dL (75-99)
[2018-11-11] MEDS: HEPARIN SOD,PORK IN 0.45% NACL 25,000 UNIT in 0.45% NACL 1 250ML.BAG IV SCH (12:26)
[2018-11-11] MEDS ORDERED: NITROGLYCERIN SL TABS 0.4 MG TAB SUBLINGUAL PRN (12:36)
[2018-11-11 13:32] VITALS: BMI 38.6
[2018-11-11 16:42] LABS: Glucose,Whole Blood 211 mg/dL (75-99)
--- NOTE | 2018-11-11 18:54 | ECHOF ---
Referral Reason:limited to assess lvf MEASUREMENTS -------- HEIGHT: 180.3 cm WEIGHT: 132.4 kg BP: 109/70 IVSd: 1.3 cm (0.6 - 1.1) LVIDd: 5.5 cm (3.9 - 5.3) LVPWd: 1.0 cm (0.6 - 1.1) IVSs: 1.5 cm LVIDs: 5.2 cm LVPWs: 1.0 cm FINDINGS -------- Sinus rhythm. This was a technically difficult study with suboptimal views. Limited Study The left ventricular size is normal. Left ventricular wall thickness is normal. There is severe g lobal hypokinesis of LV . Overall left ventricular systolic function is severely impaired with, an EF between 20 - 25 %. Lumason used CONCLUSIONS -------- 1. Sinus rhythm. 2. This was a technically difficult study with suboptimal views. 3. Limited Study 4. The left ventricular size is normal. 5. Left ventricular wall thickness is normal. 6. There is severe global hypokinesis of LV . 7. Overall left ventricular systolic function is severely impaired with, an EF between 20 - 25 %. 8. Lumason used ATTENDANT HONOR BAR: Ria Elder [facility]
[2018-11-11] MEDS: ATORVASTATIN 80 MG TAB PO SCH (19:36)
[2018-11-11 20:55] LABS: Glucose,Whole Blood 236 mg/dL (75-99)
[2018-11-11] MEDS: ALPRAZolam 0.25 MG TAB PO PRN (22:52)
[2018-11-12] MEDS: HEPARIN SOD,PORK IN 0.45% NACL 25,000 UNIT in 0.45% NACL 1 250ML.BAG IV SCH (01:35)
[2018-11-12] MEDS ORDERED: SODIUM CHLORIDE 0.9% 1,000 ML in EMPTY BAG 1 BAG IV ONE (06:00)
[2018-11-12] MEDS ORDERED: ASPIRIN 325 MG TAB PO ONE (06:00)
[2018-11-12] MEDS ORDERED: ATORVASTATIN 80 MG TAB PO ONE (06:00)
[2018-11-12 06:05] LABS: Glucose,Whole Blood 212 mg/dL (75-99)
[2018-11-12] MEDS: PRASUGREL 10 MG TAB PO SCH (06:12)
[2018-11-12] MEDS: VENLAFAXINE HCL ER 37.5 MG CAP PO SCH (06:12)
[2018-11-12] MEDS: FAMOTIDINE 20 MG TAB PO SCH ×2 (06:13→20:18)
[2018-11-12] MEDS: LISINOPRIL 2.5 MG TAB PO SCH (06:13)
[2018-11-12] MEDS: CARVEDILOL 1.563 MG TAB PO SCH ×2 (06:14→18:06)
[2018-11-12] MEDS ORDERED: IV FLUID CONTINUATION 1,000 ML IV ONE (07:43)
[2018-11-12] MEDS ORDERED: MIDAZOLAM (PF) 2 MG/2 ML VIAL IV ONE ×2 (07:49→08:33)
[2018-11-12] MEDS ORDERED: LIDOCAINE 1% INJ 10MG/ML (20 ML MDV) SQ ONE ×2 (08:00→08:22)
[2018-11-12] MEDS ORDERED: VERAPAMIL SYRINGE (5 MG/10 ML) INTRAARTER ONE (08:02)
[2018-11-12] MEDS ORDERED: HEPARIN SODIUM 1,000 UN/ML (10ML VL) IV ONE (08:02)
[2018-11-12] MEDS ORDERED: BIVALIRUDIN BOLUS 250 MG/50 ML IV ONE (08:14)
[2018-11-12] MEDS ORDERED: BIVALIRUDIN 250 MG in SODIUM CHLORIDE 0.9% 50 ML IV ONE ×2 (08:15→08:45)
[2018-11-12 08:22] LABS: African American GFR (CKD) >90 (>60 ml/min/1.73 sqM); Anion Gap 10 mmol/L; Blood Urea Nitrogen 16 mg/dL (9-20); Carbon Dioxide 24 mmol/L (22-30); Chloride 106 mmol/L (98-107); Glucose 234 mg/dL (74-99); Potassium 3.8 mmol/L (3.5-5.1); Sodium 140 mmol/L (137-145)
[2018-11-12] MEDS ORDERED: IOPAMIDOL-370 125ML BTL INJ ONE (09:02)
[2018-11-12] MEDS ORDERED: NITROGLYCERIN 1000MCG/10ML SYRINGE INTRACORON ONE (09:07)
[2018-11-12] MEDS ORDERED: IOPAMIDOL-370 100ML BTL INJ ONE (09:17)
[2018-11-12] MEDS ORDERED: TICAGRELOR 90 MG TAB PO ONE (09:20)
[2018-11-12] MEDS ORDERED: MAG HYDROX/AL HYDROX/SIMETH 30 ML CUP PO PRN (09:28)
[2018-11-12] MEDS ORDERED: ATROPINE SULFATE 0.1 MG/ML 10ML SYRINGE IV PRN (09:28)
[2018-11-12] MEDS ORDERED: NITROGLYCERIN SL TABS 0.4 MG TAB SUBLINGUAL PRN (09:28)
[2018-11-12] MEDS ORDERED: ZOLPIDEM 5 MG TAB PO PRN (09:28)
[2018-11-12] MEDS ORDERED: RX INFO: IV CONTRAST WAS GIVEN 1 EACH MISC MISCELLANE PRN (09:28)
[2018-11-12] MEDS ORDERED: SODIUM CHLORIDE 0.9% 1,000 ML IV SCH (09:30)
--- NOTE | 2018-11-12 10:05 | CC ---
CARDIAC CATHETERIZATION REPORT CARDIAC CATHETERIZATION AND PERCUTANEOUS CORONARY INTERVENTION DATE OF SERVICE: November 12, 2018 PERFORMING PHYSICIAN: Bala Smith MD, disabilities caregiver. PROCEDURE PERFORMED: 1. Selective right and left coronary angiogram. 2. Left heart catheterization. 3. Successful stenting of the proximal left anterior descending artery using 3.5 x 23 mm Xience ALINA with excellent angiographic results and reduction of stenosis from 100% to 0%. 4. Successful stenting of the mid LAD using 2.75 x 18 mm Xience ALINA with excellent angiographic results and reduction of stenosis from 100% to 0%. INDICATION: This is a pleasant 53-year-old gentleman who presented to the hospital 2 weeks ago with acute anterior ST-elevation myocardial infarction and underwent stenting of the LAD. He presented back to the hospital complaining of chest discomfort and mildly abnormal troponin. Because of that, a heart catheterization was advised. APPROACH: 1. Right radial artery. 2. Right common femoral artery. COMPLICATION: None. LEVEL OF SEDATION: Moderate with sedation length of 82 minutes. PROCEDURE DESCRIPTION: After obtaining an informed consent, the patient was brought to the cardiac landscape and yardwork laborer. Initially I did approach the patient from right radial approach, right radial artery was cannulated using micropuncture technique, the micropuncture wire passed easily then I placed a 6-[place] sheath in the right radial artery. I did selective right and left coronary angiogram using JR4 and JL3.5 catheters. Left heart catheterization was performed using the JR4 catheter which flipped into LV then I did pullback across the aortic valve. After that, I tried to intervene on the LAD from right radial approach, but the patient was breathing heavily and the guide came out and because of that, I decided to access the right common femoral artery and please refer to the intervention dictation for that which is addressed at a separate paragraph on this report. SELECTIVE CORONARY ANGIOGRAM: 1. The right coronary artery is a large caliber vessel. It is a dominant vessel. The RCA proximally is stented and the stent is patent. The mid RCA has a lesion appeared to be in the range of 50% to 60%. The RCA distally appears to have mild disease only and bifurcates into PDA and PLV branches, both appear to have mild disease only. 2. The left main is angiographically normal. It bifurcates into the left circumflex and left anterior descending artery. 3. The left circumflex is a large caliber vessel. It is a nondominant vessel. It does have mild to moderate disease in the proximal portion only. 4. The LAD is 100% occluded in the proximal portion, which seems to be in-stent occlusion. HEMODYNAMICS: The left ventricular end-diastolic pressure was 20 mmHg without significant gradient across the aortic valve. PCI OF THE LAD: Anticoagulation was initiated using Angiomax. I did access the right common femoral artery using micropuncture technique, the micropuncture wire passed easily then I placed a 6-[place] sheath in the right common femoral artery. After that, I did engage the left main using an XB4 guide. I tried to cross the chronic occlusion in the LAD using whisper wire, but the wire will not go, but finally I was able to get it using a choice PT wire with the backup support of 2.5 x 12 mm balloon. After that, I did balloon angioplasty initially using 1.5 mm balloon and then 2.5 mm balloon. Then I deployed in the proximal portion 3.5 x 23 mm Xience ALINA and in the midportion 2.75 x 18 mm Xience ALINA. After that, I postdilated both the stents using 3.75 mm NC balloon. Final angiogram showed good results and the procedure was completed without any complication. CONCLUSION: 1. Acute civ-DB-yybdmgyco myocardial infarction in this gentleman who underwent stenting of the LAD 2 weeks ago. 2. Late stent thrombosis of the LAD. 3. Successful stenting of the proximal and mid LAD as described above. POSTPROCEDURE MANAGEMENT: 1. Discontinue Effient and start the patient on Brilinta. 2. Aggressive cholesterol control. 3. Education about sticking to dual antiplatelet therapy and the rest of medications. 4. Follow up with the patient. MMODL / IJN: [id number] /
[2018-11-12] MEDS: FUROSEMIDE 10 MG/ML 4 ML VIAL IV SCH ×2 (10:26→20:18)
[2018-11-12] MEDS: TAMSULOSIN 0.4 MG CAP.ER.24H PO SCH (10:26)
[2018-11-12] MEDS: ALPRAZolam 0.25 MG TAB PO PRN ×2 (10:55→22:51)
[2018-11-12] MEDS ORDERED: FUROSEMIDE 10 MG/ML 4 ML VIAL IV STA (11:12)
[2018-11-12] MEDS: NITROGLYCERIN-D5W PMX 50 MG in DEXTROSE/WATER 1 250ML.BAG IV SCH (11:19)
--- NOTE | 2018-11-12 11:42 | XR ---
EXAMINATION TYPE: XR chest 1V DATE OF EXAM: 11/12/2018 COMPARISON: 11/10/2018 HISTORY: Shortness of breath TECHNIQUE: Single frontal view of the chest is obtained. FINDINGS: There is new interstitial pulmonary vascular prominence most pronounced in the left perihi lar region. Minimal right hemidiaphragm elevation is chronic. Cardia mediastinal silhouette is again mildly enlarged. No pneumothorax or pleural effusion. No acute osseous pathology. IMPRESSION: New central, predominantly left perihilar, pulmonary vascular prominence representing ei ther cardiogenic or noncardiogenic fluid overload.
[2018-11-12 12:05] LABS: Glucose,Whole Blood 230 mg/dL (75-99)
--- NOTE | 2018-11-12 14:07 | P.PN ---
Subjective 53-year-old the male is being treated for heart failure exacerbation patient has EF of around 20-25%. Patient had elevated troponins some chest pressure because of which patient may end up needing cardiac catheterization and cardiology is evaluating for that. Patient will be continued on Lasix IV his respiratory status improved patient feels better today. 11/12/2018 Patient underwent cardiac catheterization and stenting to LAD chart after coming to the floor patient went into respiratory failure probably secondary to IV fluids and received for the procedure and patient has pulmonary edema subsequently transferred to ICU IV fluids were discontinued patient was a resume the Lasix. Constitutional: Denied any fatigue denied any fever. Cardio vascular: denied any chest pain, palpitations Gastrointestinal denied any nausea vomiting Pulmonary: As mentioned above Neurologic denied any new focal deficits All inpatient medications were reviewed and appropriate changes in these medications as dictated in the interval history and assessment and plan. Objective - Vital Signs Vital signs: Vital Signs Temp 97.6 F 11/12/18 10:00 Pulse 89 11/12/18 11:25 Resp 24 11/12/18 11:25 BP 114/76 11/12/18 11:25 Pulse Ox 98 11/12/18 11:25 Intake & Output 11/11/18 11/12/18 11/12/18 18:59 06:59 18:59 Intake Total 434.073 250.000 52 Output Total 3000 2000 900 Balance -2565.927 -1750.000 -848 Weight 132.8 kg 130.5 kg Intake: IV 52 Intake, IV Titration 74.073 250.000 Amount Heparin Sod,Pork in 0.45% 74.073 250.000 NaCl 25,000 unit In 0.45 % NaCl 1 250ml.bag @ 7.73 UNITS/KG/HR 9.993 mls/hr IV .Q24H [facility] [place] Rx#: [id number] Oral 360 0 Output: Urine 3000 2000 900 Other: Voiding Method Toilet Urinal # Voids 1 - Exam PHYSICAL EXAMINATION: GENERAL: The patient is alert and oriented x3, patient is respiratory distress. Obese HEENT: Pupils are round and equally reacting to light. EOMI. No scleral icterus. No conjunctival pallor. Normocephalic, atraumatic. No pharyngeal erythema. No thyromegaly. CARDIOVASCULAR: S1 and S2 present. No murmurs, rubs, or gallops. PULMONARY: Significant bilateral crackles ABDOMEN: Soft, nontender, nondistended, normoactive bowel sounds. No palpable organomegaly. MUSCULOSKELETAL: No joint swelling or deformity. EXTREMITIES: No cyanosis, clubbing, or pedal edema. NEUROLOGICAL: Gross neurological examination did not reveal any focal deficits. SKIN: No rashes. - Labs CBC & Chem 7: 11/10/18 09:00 11/12/18 06:54 Labs: Abnormal Lab Results - Last 24 Hours (Table) 11/11/18 11/11/18 11/11/18 Range/Units 16:36 16:40 20:54 APTT 37.6 H (22.0-30.0) sec Glucose (74-99) mg/dL POC Glucose (mg/dL) 211 H 236 H (75-99) mg/dL 11/12/18 11/12/18 11/12/18 Range/Units 00:02 06:03 06:54 APTT 46.5 H (22.0-30.0) sec Glucose 234 H (74-99) mg/dL POC Glucose (mg/dL) 212 H (75-99) mg/dL 11/12/18 11/12/18 Range/Units 06:54 12:01 APTT 46.6 H (22.0-30.0) sec Glucose (74-99) mg/dL POC Glucose (mg/dL) 230 H (75-99) mg/dL Assessment and Plan Plan: Shortness of breath: Probably secondary to congestive heart failure chronic systolic dysfunction with acute exacerbation patient was started on IV Lasix which will be continued patient also started on lisinopril which probably can be continued as well. Patient had ejection fraction of 20 % 1 acute respiratory failure second hypoxic respiratory failure secondary to CHF exacerbation patient was transferred to ICU was started on Lasix -Elevated troponin probably secondary to non-ST elevation microinfarction patient had in-stent stenosis in the was restented in a lady -coronary artery disease and possible non-ST elevation microinfarction patient may end up needing cardiac catheterization COPD without any significant exacerbation -Morbid obesity possibility of sleep apnea cannot be ruled out will require a sleep study -Nicotine abuse: Counseling was provided -Diabetes mellitus -Hypertension -Recent myocardial infarction -Depression Patient appears to be noncompliant with diet, counseling regarding this was provided
[2018-11-12] MEDS: glipiZIDE 10 MG TAB PO SCH ×2 (14:32→20:18)
[2018-11-12] MEDS: ATORVASTATIN 80 MG TAB PO SCH (19:35)
[2018-11-12 20:14] LABS: Glucose,Whole Blood 215 mg/dL (75-99)
[2018-11-12] MEDS: TICAGRELOR 90 MG TAB PO SCH (20:18)
[2018-11-12] MEDS: INSULIN ASPART (NovoLOG) 100 UNIT/ML VIAL SQ SCH (20:36)
[2018-11-12] MEDS ORDERED: Potassium Replacement Protocol 1 EACH MISC MISCELLANE PRN (22:32)
[2018-11-12] MEDS ORDERED: POTASSIUM CHLORIDE ER 20 MEQ TAB.ER PO SCH (23:00)
[2018-11-13] MEDS: ALPRAZolam 0.25 MG TAB PO PRN (03:04)
[2018-11-13 06:22] LABS: HCT 44.9 % (39.0-53.0); HGB 14.2 gm/dL (13.0-17.5); Hypochromasia Slight; MCH 27.4 pg (25.0-35.0); MCHC 31.6 g/dL (31.0-37.0); MCV 86.9 fL (80.0-100.0); Mean Platelet Volume 6.7; Platelet Count 289 k/uL (150-450); RBC 5.17 m/uL (4.30-5.90); RDW 15.2 % (11.5-15.5); WBC 9.8 k/uL (3.8-10.6)
[2018-11-13 06:31] LABS: African American GFR (CKD) >90 (>60 ml/min/1.73 sqM); Anion Gap 8 mmol/L; Blood Urea Nitrogen 13 mg/dL (9-20); Calcium 8.9 mg/dL (8.4-10.2); Carbon Dioxide 26 mmol/L (22-30); Chloride 103 mmol/L (98-107); Glucose 184 mg/dL (74-99); Potassium 3.8 mmol/L (3.5-5.1); Sodium 137 mmol/L (137-145)
[2018-11-13 06:31] LABS: Glucose,Whole Blood 210 mg/dL (75-99)
[2018-11-13] MEDS: CARVEDILOL 1.563 MG TAB PO SCH (06:32)
[2018-11-13] MEDS: INSULIN ASPART (NovoLOG) 100 UNIT/ML VIAL SQ SCH ×2 (06:32→12:52)
[2018-11-13] MEDS ORDERED: POTASSIUM CHLORIDE ER 20 MEQ TAB.ER PO SCH (07:00)
[2018-11-13] MEDS: FUROSEMIDE 10 MG/ML 4 ML VIAL IV SCH (07:46)
--- NOTE | 2018-11-13 08:25 | XR ---
EXAMINATION TYPE: XR chest 1V portable DATE OF EXAM: 11/13/2018 COMPARISON: 11/12/2018 HISTORY: Fluid overload TECHNIQUE: Single frontal view of the chest is obtained. FINDINGS: Marked improvement in the interstitial edema, however some peribronchial cuffing does pawel in. Cardiomediastinal silhouette is enlarged. Osseous structures are grossly intact. No pleural effus ion or pneumothorax. No new focal consolidation. IMPRESSION: Although there is improved aeration with nearly resolved interstitial edema, left perihi lar peribronchial cuffing remains in the left upper lobe bronchi. This could relate to infectious bro nchitis although CT could exclude peribronchial mass.
[2018-11-13] MEDS: TAMSULOSIN 0.4 MG CAP.ER.24H PO SCH (08:47)
[2018-11-13] MEDS: glipiZIDE 10 MG TAB PO SCH (08:47)
[2018-11-13] MEDS: VENLAFAXINE HCL ER 37.5 MG CAP PO SCH (08:47)
[2018-11-13] MEDS: FAMOTIDINE 20 MG TAB PO SCH (08:47)
[2018-11-13] MEDS: LISINOPRIL 2.5 MG TAB PO SCH (08:47)
[2018-11-13] MEDS: TICAGRELOR 90 MG TAB PO SCH (08:48)
[2018-11-13] MEDS ORDERED: ASPIRIN 325 MG TAB PO SCH (09:00)
[2018-11-13] MEDS ORDERED: ASPIRIN 81 MG PO SCH (09:00)
--- NOTE | 2018-11-13 09:32 | P.PN ---
Subjective Progress Note Date: 11/13/18 This is a 53-year-old gentleman with history of ischemic heart disease with previous anterior wall AK and stent placement of the left anterior descending coronary artery. Patient was admitted with increasing shortness of breath and chest pains and also orthopnea. Patient had evidence of congestive heart failure. Patient had a repeat cardiac catheterization and was found to have total occlusion of the LAD near the left main. Patient had a repeat stent placement by Dr. Duvall yesterday. Following the procedure and on the floor, patient of severe shortness of breath and appeared to be pale. It appears that patient ventricle probably edema. Patient was given IV Lasix and was transferred to intensive care unit. Patient diuresed very well and is feeling much better today. In fact, he was hoping that he could go home today. His LV function is severely impaired. Patient is currently on IV Lasix boluses 40 mg twice a day. He is also on small dose of Coreg. I'm going to increase the dose of the Coreg to 3.125 mg by mouth twice a day. Patient is also on by Brillinta and aspirin. Patient and family were concerned about the cost of Brillinta. Hopefully, patient could be switched to Plavix after 4-6 weeks. Lungs appeared clear. Patient is maintaining sinus rhythm. Objective - Vital Signs Vital signs: Vital Signs Temp 96.8 F L 11/13/18 08:00 Pulse 105 H 11/13/18 08:00 Resp 23 11/13/18 08:00 BP 131/86 11/13/18 08:00 Pulse Ox 96 11/13/18 08:00 Intake & Output 11/12/18 11/13/18 11/13/18 18:59 06:59 18:59 Intake Total 389.425 30 350 Output Total 3680 2675 50 Balance -3290.575 -7923 300 Weight 129.6 kg Intake: IV 382 30 Sodium Chloride 0.9% 1, 330 30 000 ml @ 75 mls/hr IV . [id number] [facility] Rx#:[id number] Intake, IV Titration 7.425 Amount Nitroglycerin-D5w Pmx 50 7.425 mg In Dextrose/Water 1 250ml.bag @ 10 MCG/MIN 3 mls/hr IV .Q24H [facility] Rx#: [id number] Oral 0 350 Output: Urine 3680 2675 50 Other: Voiding Method Indwelling Catheter Indwelling Catheter - Exam GENERAL EXAM: Patient is alert and oriented and doesn't appear to be in any a cute distress HEENT: Normocephalic. Normal reaction of pupils, equal size, normal range of extraocular motion. No erythema or exudates in the throat. NECK: No masses, no nuchal rigidity. CHEST: No chest wall deformity. LUNGS: Equal air entry with no crackles or wheeze. HEART: S1 and S2 normal with no audible mumurs or gallops. Regular rhythm, femorals equal on both sides.. ABDOMEN: No hepatosplenomegaly, normal bowel sounds, no guarding or rigidity. SKIN: No rashes CENTRAL NERVOUS SYSTEM: No focal deficits. EXTREMITIES: No cyanosis, clubbing or edema. - Labs CBC & Chem 7: 11/13/18 05:49 11/13/18 05:49 Labs: Abnormal Lab Results - Last 24 Hours (Table) 11/12/18 11/12/18 11/13/18 Range/Units 12:01 20:12 05:49 Glucose 184 H (74-99) mg/dL POC Glucose (mg/dL) 230 H 215 H (75-99) mg/dL 11/13/18 Range/Units 06:29 Glucose (74-99) mg/dL POC Glucose (mg/dL) 210 H (75-99) mg/dL Assessment and Plan (1) Acute pulmonary edema Current Visit: Yes Status: Acute Code(s): J81.0 - ACUTE PULMONARY EDEMA SNOMED Code(s): 80572883 (2) Non-STEMI (non-ST elevated myocardial infarction) Current Visit: Yes Status: Acute Code(s): I21.4 - NON-ST ELEVATION (NSTEMI) MYOCARDIAL INFARCTION SNOMED Code(s): 40259979 (3) Diabetes Current Visit: No Status: Acute Code(s): E11.9 - TYPE 2 DIABETES MELLITUS WITHOUT COMPLICATIONS SNOMED Code(s): 63964507 (4) Ischemic cardiomyopathy Current Visit: Yes Status: Acute Code(s): I25.5 - ISCHEMIC CARDIOMYOPATHY SNOMED Code(s): 551284397 Plan: Patient is critically stable and improved compared to yesterday. We'll continue IV Lasix for another 24 hours and switched to by mouth medications. I'll increase the dose of the Coreg. We'll discontinue [place] and increase his activity. The rest of the medications to be continued. Prognosis is still guarded.
[2018-11-13] MEDS: NITROGLYCERIN-D5W PMX 50 MG in DEXTROSE/WATER 1 250ML.BAG IV SCH (11:19)
[2018-11-13 11:21] VITALS: TEMP 97.7
[2018-11-13 12:19] VITALS: BP 106/81; PULSE 101; RESP 19
[2018-11-13 12:22] LABS: Glucose,Whole Blood 219 mg/dL (75-99)
--- NOTE | 2018-11-13 14:52 | P.DS ---
Providers Date of admission: 11/10/18 10:25 Attending physician: Conchita Trinidad Consults: 11/10/18 10:23 Consult Physician Routine Consulting Provider: Cardiology Jaleesa Consult Reason/Comments: Non-STEMI Do you want consulting provider notified?: Yes 11/12/18 09:28 Consult Physician Routine Consulting Provider: Cardiology Jaleesa Consult Reason/Comments: Post Interventional patient Do you want consulting provider notified?: Already Contacted Primary care physician: Saige Snyder [facility] Course: Patient left AMA later. Although patient has all the medications necessary except for Brillinta and Dr. Smith's clinic will arrange for this medication until then patient will be on Plavix Plan - Discharge Summary Discharge Rx Participant: Yes New Discharge Prescriptions: No Action Ranitidine HCl [Zantac] 150 mg PO BID #20 tab metFORMIN HCL 1,000 mg PO BID Tamsulosin HCl [Flomax] 0.4 mg PO DAILY glipiZIDE [Glucotrol] 10 mg PO BID Ipratropium [place] [Atrovent Hfa] 2 puff INHALATION RT-QID PRN PRN Reason: Shortness Of Breath Albuterol Sulfate [Proair Hfa] 1 - 2 puff INHALATION RT-Q6H PRN PRN Reason: Shortness Of Breath Aspirin 325 mg PO DAILY tab Prasugrel [Effient] 10 mg PO DAILY #90 tab Atorvastatin [Lipitor] 80 mg PO HS #90 tab Metoprolol Tartrate [Lopressor] 25 mg PO BID #180 tab Lisinopril [Zestril] 2.5 mg PO BID #90 tab Furosemide [Lasix] 40 mg PO BID Venlafaxine HCl [Effexor XR] 37.5 mg PO DAILY Discharge Medication List Ranitidine HCl [Zantac] 150 mg PO BID #20 tab 07/21/15 [Rx] metFORMIN HCL 1,000 mg PO BID 01/21/16 [History] Albuterol Sulfate [Proair Hfa] 1 - 2 puff INHALATION RT-Q6H PRN 10/30/18 [History] Ipratropium [place] [Atrovent Hfa] 2 puff INHALATION RT-QID PRN 10/30/18 [History] Tamsulosin HCl [Flomax] 0.4 mg PO DAILY 10/30/18 [History] glipiZIDE [Glucotrol] 10 mg PO BID 10/30/18 [History] Aspirin 325 mg PO DAILY tab 11/02/18 [Rx] Atorvastatin [Lipitor] 80 mg PO HS #90 tab 11/02/18 [Rx] Lisinopril [Zestril] 2.5 mg PO BID #90 tab 11/02/18 [Rx] Metoprolol Tartrate [Lopressor] 25 mg PO BID #180 tab 11/02/18 [Rx] Prasugrel [Effient] 10 mg PO DAILY #90 tab 11/02/18 [Rx] Furosemide [Lasix] 40 mg PO BID 11/10/18 [History] Venlafaxine HCl [Effexor XR] 37.5 mg PO DAILY 11/10/18 [History] Follow up Appointment(s)/Referral(s): Roosevelt Moulton MD [Primary Care Provider] - 1-2 days
--- NOTE | 2018-11-13 14:52 | P.PN ---
Subjective 53-year-old the male is being treated for heart failure exacerbation patient has EF of around 20-25%. Patient had elevated troponins some chest pressure because of which patient may end up needing cardiac catheterization and cardiology is evaluating for that. Patient will be continued on Lasix IV his respiratory status improved patient feels better today. 11/12/2018 Patient underwent cardiac catheterization and stenting to LAD chart after coming to the floor patient went into respiratory failure probably secondary to IV fluids and received for the procedure and patient has pulmonary edema subsequently transferred to ICU IV fluids were discontinued patient was a resume the Lasix. 11/13/2018 Patient is euvolemic and patient is clinically doing well cardiology is recommending one more day of hospitalization. Respiratory status improved Constitutional: Denied any fatigue denied any fever. Cardio vascular: denied any chest pain, palpitations Gastrointestinal denied any nausea vomiting Pulmonary: As mentioned above Neurologic denied any new focal deficits All inpatient medications were reviewed and appropriate changes in these med ications as dictated in the interval history and assessment and plan. Objective - Vital Signs Vital signs: Vital Signs Temp 97.7 F 11/13/18 12:00 Pulse 101 H 11/13/18 12:00 Resp 19 11/13/18 12:00 BP 106/81 11/13/18 13:00 Pulse Ox 96 11/13/18 12:00 Intake & Output 11/12/18 11/13/18 11/13/18 18:59 06:59 18:59 Intake Total 389.425 30 600 Output Total 3680 2675 1650 Balance -3290.575 -2645 -1050 Weight 129.6 kg Intake: IV 382 30 Sodium Chloride 0.9% 1, 330 30 000 ml @ 75 mls/hr IV . [id number] [facility] Rx#:[id number] Intake, IV Titration 7.425 Amount Nitroglycerin-D5w Pmx 50 7.425 mg In Dextrose/Water 1 250ml.bag @ 10 MCG/MIN 3 mls/hr IV .Q24H [facility] Rx#: [id number] Oral 0 600 Output: Urine 3680 2675 1650 Other: Voiding Method Indwelling Catheter Indwelling Catheter Indwelling Catheter # Voids 1 - Exam PHYSICAL EXAMINATION: GENERAL: The patient is alert and oriented x3, patient is respiratory distress. Obese HEENT: Pupils are round and equally reacting to light. EOMI. No scleral icterus. No conjunctival pallor. Normocephalic, atraumatic. No pharyngeal erythema. No thyromegaly. CARDIOVASCULAR: S1 and S2 present. No murmurs, rubs, or gallops. PULMONARY: Air entry into bilateral lung levy no wheezing or crackles are appreciated ABDOMEN: Soft, nontender, nondistended, normoactive bowel sounds. No palpable organomegaly. MUSCULOSKELETAL: No joint swelling or deformity. EXTREMITIES: No cyanosis, clubbing, or pedal edema. NEUROLOGICAL: Gross neurological examination did not reveal any focal deficits. SKIN: No rashes. - Labs CBC & Chem 7: 11/13/18 05:49 11/13/18 05:49 Labs: Abnormal Lab Results - Last 24 Hours (Table) 11/12/18 11/13/18 11/13/18 Range/Units 20:12 05:49 06:29 Glucose 184 H (74-99) mg/dL POC Glucose (mg/dL) 215 H 210 H (75-99) mg/dL 11/13/18 Range/Units 12:21 Glucose (74-99) mg/dL POC Glucose (mg/dL) 219 H (75-99) mg/dL Assessment and Plan Plan: Shortness of breath: Probably secondary to congestive heart failure chronic systolic dysfunction with acute exacerbation which will be continued patient also started on lisinopril which probably can be continued as well. Patient had ejection fraction of 20 % and patient is fairly euvolemic at this time cardi ology is according 1 more day of hospital physician monitoring 1 acute respiratory failure second hypoxic respiratory failure secondary to CHF exacerbation patient was transferred to ICU was started on Lasix -Elevated troponin probably secondary to non-ST elevation microinfarction patient had in-stent stenosis in the was restented again Plavix was switched to Brinta -coronary artery disease and possible non-ST elevation myocardial fraction underwent cardiac catheterization and stenting of above-mentioned coronary vessels COPD without any significant exacerbation -Morbid obesity possibility of sleep apnea cannot be ruled out will require a sleep study -Nicotine abuse: Counseling was provided -Diabetes mellitus -Hypertension -Recent myocardial infarction -Depression Patient appears to be noncompliant with diet, counseling regarding this was provided
[2018-11-13 15:04] LABS: Hemoglobin A1C 8.3 % (4.0-6.0)
[2018-11-13] MEDS ORDERED: CARVEDILOL 3.125 MG TAB PO SCH (17:30)
== END 2018-11-13 15:23 | disposition left against medical advice (07) | DRG 246 ==
LOC: EC 08:32 → 3SCARD 10:25 → 2SICU 11-12 11:43
PROVIDERS: ADMIT Internal Medicine; ATTEND Internal Medicine
PROC: B2151ZZ Fluoroscopy of Left Heart using Low Osmolar Contrast (ICD-10-PCS; principal; 2018-11-12 07:30)
PROC: 027035Z Dilation of Coronary Artery, One Artery with Two Drug-eluting Intraluminal Devices, Percutaneous Approach (ICD-10-PCS; principal; 2018-11-12 07:30)
PROC: 4A023N7 Measurement of Cardiac Sampling and Pressure, Left Heart, Percutaneous Approach (ICD-10-PCS; principal; 2018-11-12 07:30)
PROC: B2111ZZ Fluoroscopy of Multiple Coronary Arteries using Low Osmolar Contrast (ICD-10-PCS; principal; 2018-11-12 07:30)
DX: T82.867A Thrombosis due to cardiac prosthetic devices, implants and grafts, initial encounter (principal); I22.2 Subsequent non-ST elevation (NSTEMI) myocardial infarction; J96.01 Acute respiratory failure with hypoxia; I50.23 Acute on chronic systolic (congestive) heart failure; I11.0 Hypertensive heart disease with heart failure; E11.9 Type 2 diabetes mellitus without complications; E66.01 Morbid (severe) obesity due to excess calories; Z68.37 Body mass index [BMI] 37.0-37.9, adult; E78.5 Hyperlipidemia, unspecified; F17.200 Nicotine dependence, unspecified, uncomplicated; F32.9 Major depressive disorder, single episode, unspecified; I25.10 Atherosclerotic heart disease of native coronary artery without angina pectoris; I25.5 Ischemic cardiomyopathy; I34.0 Nonrheumatic mitral (valve) insufficiency; J44.9 Chronic obstructive pulmonary disease, unspecified; Z82.49 Family history of ischemic heart disease and other diseases of the circulatory system; Z83.3 Family history of diabetes mellitus; Z79.84 Long term (current) use of oral hypoglycemic drugs; Z79.899 Other long term (current) drug therapy; Z79.82 Long term (current) use of aspirin; Z71.6 Tobacco abuse counseling; Z91.11 Patient's noncompliance with dietary regimen; Z71.3 Dietary counseling and surveillance; Y83.1 Surgical operation with implant of artificial internal device as the cause of abnormal reaction of the patient, or of later complication, without mention of misadventure at the time of the procedure; Z79.02 Long term (current) use of antithrombotics/antiplatelets
CPT/HCPCS: 36415; 71045; 71046; 80048; 80053; 83036; 83735; 83880; 84484; 85025; 85027; 85610; 85730; 93308; 93458; 94760; 96365; 96366; 96375; 96376; 99291; C1874